=== PATIENT | male | born 1935 | race Caucasian/White ===

== ENCOUNTER 2017-10-10 06:21 | Outpatient (RCR) | payer SELFPAY | END 2017-11-09 23:59 | LOC: CR 06:21 | PROVIDERS: Family Provider Internal Medicine; PCP Internal Medicine; Visit Provider Internal Medicine Cardiovascular Disease | DX: Z00.00 Encounter for general adult medical examination without abnormal findings (principal) ==

== ENCOUNTER → 2017-11-22 07:12 | Outpatient (CLI) | payer MEDICARE, OTHER, SELFPAY ==
[2017-11-22 09:11] LABS: AST(SGOT) 14 U/L (15-37); Alanine Aminotransfer ALT/SGPT 16 U/L (16-61); Albumin, Serum 3.8 g/dL (3.2-5.0); Alkaline Phosphatase 94 U/L (45-117); Cholesterol 172 mg/dL (200); Globulin 3.6 g/dL (2.2-4.2); High Density Lipoprotein 39 mg/dL; Protein, Total 7.4 g/dL (6.4-8.2); Triglycerides 246 mg/dL; Very Low Density Lipoprotein 49 mg/dL (5-40)
== END ==
PROVIDERS: Physician Assistant Medical; Family Provider Internal Medicine; PCP Internal Medicine
DX: E78.5 Hyperlipidemia, unspecified (principal); Z79.899 Other long term (current) drug therapy
CPT/HCPCS: 36415; 80061; 80076

== ENCOUNTER 2017-12-05 06:00 | Outpatient (RCR) | payer SELFPAY | END 2017-12-09 23:59 | LOC: CR 06:00 | PROVIDERS: Family Provider Internal Medicine; PCP Internal Medicine; Visit Provider Internal Medicine Cardiovascular Disease | DX: Z00.00 Encounter for general adult medical examination without abnormal findings (principal) ==

== ENCOUNTER 2018-01-09 06:00 | Outpatient (RCR) | payer MEDICARE, OTHER, SELFPAY | END 2018-01-09 23:59 | LOC: CR 06:00 | PROVIDERS: Family Provider Internal Medicine; PCP Internal Medicine; Visit Provider Internal Medicine Cardiovascular Disease | DX: Z00.00 Encounter for general adult medical examination without abnormal findings (principal) ==

== ENCOUNTER 2018-02-06 06:00 | Outpatient (RCR) | payer MEDICARE, OTHER, SELFPAY | END 2018-02-08 23:59 | LOC: CR 06:00 | PROVIDERS: Family Provider Internal Medicine; PCP Internal Medicine; Visit Provider Internal Medicine Cardiovascular Disease | DX: Z00.00 Encounter for general adult medical examination without abnormal findings (principal) ==

== ENCOUNTER 2018-03-11 06:00 | Outpatient (RCR) | payer MEDICARE, OTHER, SELFPAY | END 2018-03-11 23:59 | LOC: CR 06:00 | PROVIDERS: Family Provider Internal Medicine; PCP Internal Medicine; Visit Provider Internal Medicine Cardiovascular Disease | DX: Z00.00 Encounter for general adult medical examination without abnormal findings (principal) ==

== ENCOUNTER 2018-04-10 06:00 | Outpatient (RCR) | payer SELFPAY | END 2018-04-11 23:59 | LOC: CR 06:00 | PROVIDERS: Family Provider Internal Medicine; PCP Internal Medicine; Visit Provider Internal Medicine Cardiovascular Disease | DX: Z00.00 Encounter for general adult medical examination without abnormal findings (principal) ==

== ENCOUNTER 2018-05-08 06:00 | Outpatient (RCR) | payer SELFPAY | END 2018-05-11 23:59 | LOC: CR 06:00 | PROVIDERS: Family Provider Internal Medicine; PCP Internal Medicine; Visit Provider Internal Medicine Cardiovascular Disease | DX: Z00.00 Encounter for general adult medical examination without abnormal findings (principal) ==

== ENCOUNTER → 2018-06-03 07:28 | Outpatient (CLI) | payer MEDICARE, OTHER, SELFPAY ==
[2018-06-03 08:34] LABS: AST(SGOT) 15 U/L (15-37); Alanine Aminotransfer ALT/SGPT 19 U/L (16-61); Albumin, Serum 3.6 g/dL (3.2-5.0); Alkaline Phosphatase 109 U/L (45-117); Bilirubin, Direct 0.17 mg/dL (0.00-0.30); Cholesterol 163 mg/dL (200); Globulin 3.8 g/dL (2.2-4.2); High Density Lipoprotein 36 mg/dL; Protein, Total 7.4 g/dL (6.4-8.2); Triglycerides 248 mg/dL; Very Low Density Lipoprotein 50 mg/dL (5-40)
== END ==
PROVIDERS: Family Provider Internal Medicine; PCP Internal Medicine; Referring Provider Internal Medicine Cardiovascular Disease; Visit Provider Internal Medicine Cardiovascular Disease
DX: E78.5 Hyperlipidemia, unspecified (principal); Z79.899 Other long term (current) drug therapy
CPT/HCPCS: 36415; 80061; 80076

== ENCOUNTER 2018-06-10 06:00 | Outpatient (RCR) | payer SELFPAY | END 2018-06-11 23:59 | LOC: CR 06:00 | PROVIDERS: Family Provider Internal Medicine; PCP Internal Medicine; Visit Provider Internal Medicine Cardiovascular Disease | DX: Z00.00 Encounter for general adult medical examination without abnormal findings (principal) ==

== ENCOUNTER → 2018-07-01 14:46 | Outpatient (CLI) | payer MEDICARE, OTHER, SELFPAY ==
[2018-07-01 13:18] VITALS: BMI 25.4
--- NOTE | 2018-07-01 14:50 | RAD_ITS ---
STUDY: X-RAY CHEST REASON FOR EXAM: Male, 82 years old. Having pacemaker battery changed soon TECHNIQUE: PA and lateral views of the chest. COMPARISON: 01/29/2011 FINDINGS: Two lead cardiac conduction device is seen via the left subclavian vein with lead tips projecting over the right atrium and right ventricle, respectively. Reticular opacity in the left lung base is more conspicuous since the prior study on frontal and lateral views. There is no demonstrated pleural abnormality. Normal size heart. Sternal wires and mediastinal surgical clips compatible with prior CABG. Normal mediastinum and yfn. Normal visualized pulmonary arteries. Normal visualized aortic arch and descending thoracic aorta. There is demineralization of the osseous structures. Normal visualized ribs, clavicles, and shoulders. There is no demonstrated abnormality of the visualized soft tissue structures of the upper abdomen. RAD/Chest PA and Lateral IMPRESSION: 1. Early infiltrate or localized parenchymal fibrosis in the left lower lobe. Electronically Signed: Angel Zaragoza MD at 20:55 EST , Service support ,
== END ==
PROVIDERS: Family Provider Internal Medicine; PCP Internal Medicine; Referring Provider Internal Medicine Cardiovascular Disease; Visit Provider Internal Medicine Cardiovascular Disease
DX: I49.5 Sick sinus syndrome (principal); Z95.0 Presence of cardiac pacemaker; Z95.820 Peripheral vascular angioplasty status with implants and grafts
CPT/HCPCS: 36415; 71046; 80048; 81001; 85027; 85610

== ENCOUNTER → 2018-07-01 15:09 | Outpatient (CLI) | payer MEDICARE, OTHER, SELFPAY ==
[2018-07-01 13:18] VITALS: BMI 25.4
[2018-07-01 15:25] LABS: Bacteria 0 SEEN /hpf (None Seen); Mucous, Urine 0 SEEN /hpf (<or=2+); Red Blood Cells-Urine 0 SEEN /hpf (0-5)
[2018-07-01 16:34] LABS: Color, Urine Yellow (Yellow); Glucose, Dipstick Normal (Normal); Ketone-Dipstick Negative (Negative); Leukocyte Esterase-Dipstick Negative /ul (Negative); Nitrite-Dipstick Negative (Negative); Occult Blood-Urine Negative /ul (Negative); Protein-Dipstick Negative (Negative); Specific Gravity, Urine 1.015 (1.002-1.030); Urine Bilirubin Dipstick Negative (Negative); Urine Clarity Clear (Clear); Urine Urobilinogen Normal (Normal)
[2018-07-01 16:42] LABS: Hyaline Cast 0-5 SEEN /lpf (0-5)
[2018-07-01 16:43] LABS: Squamous Epithelial Cells - UA 0-5 SEEN /hpf (0-5)
[2018-07-01 16:46] LABS: White Blood Cells 0-5 SEEN /hpf (0-5)
[2018-07-01 17:02] LABS: Hematocrit 39.5 % (40-54); Hemoglobin 12.9 g/dl (13.0-16.5); Mean Corp Hgb Conc 32.7 g/gl (32-36); Mean Corpuscular Hgb 30.6 pg (27.0-32.0); Mean Corpuscular Volume 93.6 fL (80-94); Mean Platelet Vol. 10.7 fl (6.2-12.0); Platelet Count 143 K/mm3 (150-450); RBC Distribution Width CV 13.7 % (11.6-14.6); RBC Distribution Width SD 46.3 fl (35.1-43.9); Red Blood Count 4.22 M/mm3 (4.6-6.2); Scan Indicated on CBC? Y/N NO; White Blood Count 5.3 K/mm3 (4.4-11.0)
[2018-07-01 17:11] LABS: International Normalized Ratio 1.1; Prothrombin Time (Protime)PT. 13.9 SECONDS (11.7-14.9)
[2018-07-01 17:13] LABS: Anion Gap 5 (5-15); BUN 27 mg/dL (7-18); BUN/Creat Ratio 15.3 RATIO (10-20); Calcium,Total 8.7 mg/dL (8.5-10.1); Chloride 111 mmol/L (98-107); Creatinine, Serum 1.76 mg/dL (0.70-1.30); EST Glomerular Filtration Rate 39 mL/min (>60); Est Glom Filt Rate - Afr Amer 48 mL/min (>60); Glucose 82 mg/dL (74-106); Potassium 4.3 mmol/L (3.5-5.1); Sodium Level 142 mmol/L (136-145)
== END ==
PROVIDERS: Family Provider Internal Medicine; PCP Internal Medicine; Referring Provider Internal Medicine Cardiovascular Disease; Visit Provider Internal Medicine Cardiovascular Disease
DX: I49.5 Sick sinus syndrome (principal); Z95.820 Peripheral vascular angioplasty status with implants and grafts; Z95.0 Presence of cardiac pacemaker
CPT/HCPCS: 36415; 80048; 81001; 85027; 85610

== ENCOUNTER 2018-07-10 06:00 | Outpatient (RCR) | payer SELFPAY | END 2018-07-11 23:59 | LOC: CR 06:00 | PROVIDERS: Family Provider Internal Medicine; PCP Internal Medicine; Visit Provider Internal Medicine Cardiovascular Disease | DX: Z00.00 Encounter for general adult medical examination without abnormal findings (principal) ==

== ENCOUNTER 2018-07-21 10:59 | Day surgery (SDC) | payer MEDICARE, OTHER, SELFPAY ==
[2018-07-01 13:18] VITALS: BMI 25.4
[2018-07-18 10:45] VITALS: BMI 25.4
--- NOTE | 2018-07-21 13:00 | CL.IE_ITS ---
Patient: ZENY FAROOQ V Study Date: 07/21/2018 Performing: Edinson White MD : [id number] Age: 83 Gender: male PROCEDURES PERFORMED [id number] REMOVAL+REPLACEMENT PACER-DUAL LEAD INDICATIONS End-of-life replacement indicator Sinoatrial node dysfunction/Sick sinus syndrome PROCEDURE DETAILS The patient was brought to the Catheterization Lab in the postabsorptive nonsedated state. Infor med consent was obtained prior to the procedure. Local anesthetic was given subcutaneously to the le ft jugular region with Lidocaine 2%. PPM generator was removed. Device pocket was irrigated with anti biotic. PPM generator was attached to the lead(s) and inserted into the pocket. Subcutaneous closure was completed with 3-0 Vicryl. Skin closure was completed with 4-0 Vicryl. The patient tolerated the procedure well. Estimated Blood Loss: 15 ml's IMPLANTED / EX-PLANTED DEVICES IMPLANTED DEVICE(S): PPM Generator - Human Resources Specialist: [employer], Model # Assurity MR [id number] , Serial # [id number] DEVICE PARAMETERS ATRIAL LEAD PARAMETERS: P wave- 0.6 (mV) threshold- 0.5 (V) impedence- 299 (OHMS) VENTRICULAR LEAD PARAMETERS: R wave- >12 (mV) threshold-0.5 (V) impedence- 371 (OHMS) DEVICE PARAMETERS: Mode- DDDR Lower rate- 60 Upper rate- 130 CONCLUSIONS / RECOMMENDATIONS PROCEDURE MEDICATIONS Versed 1 mg IV Oxygen: 2 L/min via nasal cannula Antibiotic given in appropriate timeframe. Ancef 2 Gm IV @ 07/21/2018 12:07:15 Signed By Edinson White MD On 07/21/2018 13:00:17 Edinson White MD
== END 2018-07-21 14:17 | disposition home or self-care (01) ==
PROVIDERS: Family Provider Internal Medicine; PCP Internal Medicine; Referring Provider Internal Medicine Cardiovascular Disease; Visit Provider Internal Medicine Cardiovascular Disease
DX: I49.5 Sick sinus syndrome (principal); Z45.010 Encounter for checking and testing of cardiac pacemaker pulse generator [battery]; Z00.6 Encounter for examination for normal comparison and control in clinical research program; I25.810 Atherosclerosis of coronary artery bypass graft(s) without angina pectoris; I10 Essential (primary) hypertension; E78.5 Hyperlipidemia, unspecified; Z79.82 Long term (current) use of aspirin; Z79.899 Other long term (current) drug therapy; I25.2 Old myocardial infarction; Z87.891 Personal history of nicotine dependence; Z96.643 Presence of artificial hip joint, bilateral; Z95.1 Presence of aortocoronary bypass graft
CPT/HCPCS: 33228; 99152; 99153; J7040; J7050

== ENCOUNTER 2018-07-31 06:00 | Outpatient (RCR) | payer SELFPAY ==
[2018-07-01 13:18] VITALS: BMI 25.4
== END 2018-08-11 23:59 ==
LOC: CR 06:00
PROVIDERS: Family Provider Internal Medicine; PCP Internal Medicine; Referring Provider Internal Medicine Cardiovascular Disease; Visit Provider Internal Medicine Cardiovascular Disease
DX: Z00.00 Encounter for general adult medical examination without abnormal findings (principal)

== ENCOUNTER 2018-11-11 06:35 | Outpatient (RCR) | payer SELFPAY ==
[2018-07-18 10:45] VITALS: BMI 25.4
== END 2018-12-09 23:59 ==
LOC: CR 06:35
PROVIDERS: Family Provider Internal Medicine; PCP Internal Medicine; Referring Provider Internal Medicine Cardiovascular Disease; Visit Provider Internal Medicine Cardiovascular Disease
DX: Z00.00 Encounter for general adult medical examination without abnormal findings (principal)

== ENCOUNTER → 2018-12-02 07:09 | Outpatient (CLI) | payer MEDICARE, OTHER, SELFPAY ==
[2018-07-18 10:45] VITALS: BMI 25.4
[2018-12-02 08:28] LABS: AST(SGOT) 15 U/L (15-37); Alanine Aminotransfer ALT/SGPT 17 U/L (16-61); Albumin, Serum 3.5 g/dL (3.2-5.0); Alkaline Phosphatase 98 U/L (45-117); Bilirubin, Direct 0.16 mg/dL (0.00-0.30); Cholesterol 168 mg/dL (200); Globulin 3.5 g/dL (2.2-4.2); High Density Lipoprotein 41 mg/dL; Triglycerides 192 mg/dL; Very Low Density Lipoprotein 38 mg/dL (5-40)
== END ==
PROVIDERS: Family Provider Internal Medicine; PCP Internal Medicine; Referring Provider Physician Assistant Medical; Visit Provider Physician Assistant Medical
DX: E78.5 Hyperlipidemia, unspecified (principal)
CPT/HCPCS: 36415; 80061; 80076

== ENCOUNTER 2018-12-11 08:33 | Outpatient (RCR) | payer SELFPAY ==
[2018-07-18 10:45] VITALS: BMI 25.4
== END 2019-01-09 23:59 ==
LOC: CR 08:33
PROVIDERS: Family Provider Internal Medicine; PCP Internal Medicine; Referring Provider Internal Medicine Cardiovascular Disease; Visit Provider Internal Medicine Cardiovascular Disease
DX: Z00.00 Encounter for general adult medical examination without abnormal findings (principal)

== ENCOUNTER → 2018-12-18 16:51 | Outpatient (CLI) | payer MEDICARE, OTHER, SELFPAY ==
[2018-12-18 15:55] VITALS: BMI 25.4
[2018-12-18 18:13] LABS: Anion Gap 5 (5-15); BUN 22 mg/dL (7-18); BUN/Creat Ratio 13.4 RATIO (10-20); Calcium,Total 8.6 mg/dL (8.5-10.1); Chloride 115 mmol/L (98-107); Creatinine, Serum 1.64 mg/dL (0.70-1.30); EST Glomerular Filtration Rate 43 mL/min (>60); Est Glom Filt Rate - Afr Amer 52 mL/min (>60); Glucose 81 mg/dL (74-106); Magnesium 1.9 mg/dL (1.6-2.6); Potassium 4.2 mmol/L (3.5-5.1); Sodium Level 146 mmol/L (136-145); Thyroid Stim Hormone (TSH) 1.12 uIU/mL (0.358-3.74)
== END ==
PROVIDERS: Family Provider Internal Medicine; PCP Internal Medicine; Referring Provider Internal Medicine Cardiovascular Disease; Visit Provider Internal Medicine Cardiovascular Disease
DX: I25.10 Atherosclerotic heart disease of native coronary artery without angina pectoris (principal); I47.1 Supraventricular tachycardia
CPT/HCPCS: 36415; 80048; 83735; 84443

== ENCOUNTER 2019-01-13 06:38 | Outpatient (RCR) | payer SELFPAY ==
[2018-12-18 15:55] VITALS: BMI 25.4
== END 2019-02-08 23:59 ==
LOC: CR 06:38
PROVIDERS: Family Provider Internal Medicine; PCP Internal Medicine; Referring Provider Internal Medicine Cardiovascular Disease; Visit Provider Internal Medicine Cardiovascular Disease
DX: Z00.00 Encounter for general adult medical examination without abnormal findings (principal)

== ENCOUNTER 2019-02-10 06:20 | Outpatient (RCR) | payer SELFPAY ==
[2018-12-18 15:55] VITALS: BMI 25.4
== END 2019-03-11 23:59 ==
LOC: CR 06:20
PROVIDERS: Family Provider Internal Medicine; PCP Internal Medicine; Referring Provider Internal Medicine Cardiovascular Disease; Visit Provider Internal Medicine Cardiovascular Disease
DX: Z00.00 Encounter for general adult medical examination without abnormal findings (principal)

== ENCOUNTER 2019-05-12 06:42 | Outpatient (RCR) | payer SELFPAY ==
[2018-12-18 15:55] VITALS: BMI 25.4
[2019-04-07 14:16] VITALS: BMI 24.3
== END 2019-06-11 23:59 ==
LOC: CR 06:42
PROVIDERS: Family Provider Internal Medicine; PCP Internal Medicine; Referring Provider Internal Medicine Cardiovascular Disease; Visit Provider Internal Medicine Cardiovascular Disease
DX: Z00.00 Encounter for general adult medical examination without abnormal findings (principal)

== ENCOUNTER → 2019-06-15 08:24 | Outpatient (CLI) | payer MEDICARE, OTHER, SELFPAY ==
[2019-04-07 14:16] VITALS: BMI 24.3
[2019-06-15 09:36] LABS: BUN 29 mg/dL (7-18); Creatinine, Serum 1.96 mg/dL (0.70-1.30); EST Glomerular Filtration Rate 35 mL/min (>60); Est Glom Filt Rate - Afr Amer 42 mL/min (>60)
== END ==
PROVIDERS: Family Provider Internal Medicine; PCP Internal Medicine; Referring Provider Otolaryngology; Visit Provider Otolaryngology
DX: H93.11 Tinnitus, right ear (principal)
CPT/HCPCS: 36415; 82565; 84520

== ENCOUNTER 2020-11-12 11:21 | Inpatient (IN) | payer MEDICARE, OTHER, SELFPAY ==
[2020-07-21 15:45] VITALS: BMI 26.2
[2020-11-12] VITALS (19 sets, daily range): BP systolic 102–168; BP diastolic 44–74; PULSE 60–65; RESP 17–23; TEMP 36.4–37.1; O2SAT 87–95; BMI 25.1; BMI 26.4
--- NOTE | 2020-11-12 11:42 | EKG12_ITS ---
Test Reason : COUGH Blood Pressure : / mmHG Vent. Rate : 060 BPM Atrial Rate : 060 BPM P-R Int : 222 ms QRS Dur : 094 ms QT Int : 494 ms P-R-T Axes : -08 064 268 degrees QTc Int : 494 ms Atrial-paced rhythm with prolonged AV conduction Cannot rule out Inferior infarct , age undetermined ST & T wave abnormality, consider lateral ischemia Abnormal ECG Confirmed by ATIF LANG, JANE ([id number]), map editor JIM ZAMBRANO ([id number]) on 11/16/2020 7:45:49 AM Referred By: CATHY Confirmed By:JANE SRIVASTAVA MD
--- NOTE | 2020-11-12 11:42 | RAD_ITS ---
EXAM: XR CHEST, 1 VIEW CLINICAL INDICATION: Cough. TECHNIQUE: Frontal view of the chest. This report was created using [employer] report generation technology. COMPARISON: 07/01/2018. FINDINGS: LUNGS AND PLEURAL SPACES: New ill-defined interstitial infiltrates in the bottom half of right lung. No pneumothorax. No effusion. HEART: Unremarkable. Cardiac silhouette not enlarged. MEDIASTINUM: Central airways and mediastinal contour are unremarkable. BONES/JOINTS: Unremarkable. SOFT TISSUES: Unremarkable. TUBES, LINES AND DEVICES: Dual-chamber pacing lead tips remain in the right atrium and right ventricle. RAD/Chest 1 View (Portable) IMPRESSION: 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 Electronically Signed: Adrian Sierra MD at 12:49 EDT , Service support ,
--- NOTE | 2020-11-12 11:45 | ED.DCSUM_ITS ---
History of Present Illness Chief Complaint: Cough Informant: Patient Narrative: Patient is an 85-year-old male with a past medical history of CAD with stent placed who presents to the emergency department for cough, fatigue and subjective fevers. Symptoms started this past Saturday. He feels like he is not able to focus as well as normal. He has been taking ibuprofen for his typical arthritis pains. He denies any known sick contacts. No known coronavirus exposures. His cough is occasionally productive of a sputum. He has already received both doses of his coronavirus vaccine. He denies any significant headache or neck stiffness. No rashes. No urinary symptoms. Denies nausea/vomiting or diarrhea. He denies any chest pain or abdominal pain. He has a former smoking history. Past Medical History - Allergies and Home Meds Allergies/Adverse Reactions: Allergies No Known Allergies Allergy (Verified 11/12/20 11:22) Prior records reviewed: Yes Surgical History: noncontributory Smoking Status: Former smoker - Family History Maternal Family History: Family History (Last Reviewed 07/21/20 @ 16:[address] Edinson White MD) Father Cancer Mother Alzheimers disease Family History: Reports: Dementia Paternal Family History: Family History (Last Reviewed 07/21/20 @ 16:[address] Edinson White MD) Father Cancer Mother Alzheimers disease Family History: Reports: Cancer Review of Systems All systems negative except as indicated General: Reports: Fever, Malaise. Denies: Chills, Sweats Eyes: Denies: Visual changes - bilaterally, Diplopia ENT: Denies: Rhinorrhea, Sore throat Cardiovascular: Denies: Chest pain, Palpitations Respiratory: Reports: Cough, Dyspnea on exertion Gastrointestinal: Denies: Abdominal pain, Nausea, Vomiting, Diarrhea Genitourinary: Denies: Dysuria, Hematuria, Frequency Musculoskeletal: Denies: Back pain, Extremity Pain Skin: Denies: Rash, Wounds Neurological: Denies: Headache, Weakness, Numbness Physical Exam Vital Signs/Narrative: Vital Signs Temp Pulse Resp BP Pulse Ox 11/12/20 11:23 98.7 F 61 17 126/51 H 92 Inital Vital Signs reviewed: Yes General: Well nourished, Well developed, No Acute Distress Head: Normocephalic, Atraumatic Eyes: Perrl, EOMI ENT: Moist mucous membranes, No rhinorrhea Neck: Supple, Nontender Cardiovascular: Regular rate, Regular rhythm, No murmurs Respiratory: No distress, CTA bilaterally, Chest nontender Abdomen: Soft, Nontender, Nondistended, Normal bowel sounds Back: Nontender, Normal Inspection Extremities: Nontender, No edema. Negative for: Calf Tenderness Skin: Normal color, No rash Neurological: Alert, Oriented x3, Cranial nerves II-XII grossly intact, Normal Strength, Normal Sensation Psychological: Normal affect, Normal Mood Diagnostic/Tx/Re-eval Chest X-Ray - ED: - - Single view portable x-ray interpreted by myself. There are patchy infiltrates in the right lower lobe and middle lobe. No left-sided involvement. Normal cardiac silhouette. Normal mediastinum. No large effusion appreciated. Sternotomy wires present. Pacer present. - EKG Initial EKG Interpretation: - - Rate of 60 bpm and an atrial paced rhythm. Has a AK interval of 222 with this. Otherwise normal intervals. Normal axis. No significant ST elevations or depressions. No T wave abnormalities. - Medical Decision Making Patient presents to the emergency department for cough, subjective fevers and weakness. Upon arrival to the emergency department he is satting 92% on room air with no increased work of breathing. He is afebrile at this time. Will check basic lab work including blood cultures and lactic acid. Chest x-ray and coronavirus test being obtained as well. Patient's Covid antigen came back negative. Does not have a high white blood cell count. His lactic acid was minimally elevated and he was started on IV fluids. He does not technically meet SIRS criteria so we will hold off on a complete 30 cc/kg fluid bolus. He is nontoxic-appearing. Unfortunately patient did drop his oxygen saturation to 87% on room air and was started on supplemental oxygen by nasal cannula. He is given a dose of Rocephin and azithromycin here in the emergency department. Given the hypoxia, worsening renal function will bring him into the hospital for further evaluation and management. Because of his elevated lactic acid he will require ICU stay initially. Patient understands and is agreeable with this plan. He otherwise has been stable throughout ED stay. ED Disposition - Plan for ED Patient: Disposition: Acute Care [facility] Diagnosis: CAP (community acquired pneumonia), Hypoxia, [id number] kidney injury, Elevated lactic acid level
[2020-11-12 12:36] LABS: Absolute Lymphocyte Count 0.75 X10^3/uL (0.83-4.51); Absolute Neutrophil Count 6.5 X10^3/uL (2.0-7.7); Basophil# 0.03 X10^3/uL; Basophil% 0.4 % (0-1); Eosinophil# 0.11 X10^3/uL; Eosinophils% 1.4 % (0-5); Hematocrit 32.7 % (40-54); Hemoglobin 10.6 g/dL (13.0-16.5); Lymphocyte # 0.75 X10^3/ul (4.0); Lymphocyte % 9.3 % (19-41); Mean Corp Hgb Conc 32.4 g/dL (32-36); Mean Corpuscular Hgb 30.8 pg (27.0-32.0); Mean Corpuscular Volume 95.1 fL (80-94); Mean Platelet Vol. 11.1 fl (6.2-12.0); Monocyte# 0.69 X10^3/uL; Monocyte% 8.5 % (0-10); NRBC Flagged by Analyzer 0 % (0-5); Neutrophil # 6.46 X10^3/uL (2.7-7.7); Neutrophil % 79.8 % (47-70); Platelet Count 216 K/mm3 (150-450); RBC Distribution Width CV 13.6 % (11.6-14.6); RBC Distribution Width SD 47.4 fl (35.1-43.9); Red Blood Count 3.44 M/mm3 (4.6-6.2); White Blood Count 8.1 K/mm3 (4.4-11.0)
[2020-11-12 12:37] LABS: ALB/GLOB Ratio 0.6 RATIO (0.9-2.4); AST(SGOT) 20 U/L (15-37); Alanine Aminotransfer ALT/SGPT 28 U/L (16-61); Albumin, Serum 2.7 g/dL (3.2-5.0); Alkaline Phosphatase 149 U/L (45-117); Anion Gap 10 (5-15); BUN 44 mg/dL (7-18); BUN/Creat Ratio 17.8 RATIO (10-20); Calcium,Total 8.4 mg/dL (8.5-10.1); Chloride 109 mmol/L (98-107); Creatinine, Serum 2.47 mg/dL (0.70-1.30); EST Glomerular Filtration Rate 27 mL/min (>60); Est Glom Filt Rate - Afr Amer 32 mL/min (>60); Estimated Creatinine Clearance 21.47 ml/min; Globulin 4.4 g/dL (2.2-4.2); Glucose 115 mg/dL (74-106); Potassium 3.3 mmol/L (3.5-5.1); Protein, Total 7.1 g/dL (6.4-8.2); Sodium Level 139 mmol/L (136-145)
[2020-11-12 12:54] LABS: Lactic Acid 2.3 mmol/L (0.4-1.9)
[2020-11-12] MEDS: 0.9% Normal Saline 1,000 ML 999 ML IV ×2 (13:00→13:55)
--- NOTE | 2020-11-12 13:37 | ED.RN ---
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
--- NOTE | 2020-11-12 13:38 | HP.PCM_ITS ---
Problem List (1) CAP (community acquired pneumonia) Status: Acute Qualifiers: Laterality: right (2) Severe sepsis Status: Acute (3) Hypoxia Status: Acute (4) Atherosclerosis of coronary artery of jena heart without angina pectoris Status: Resolved Comment: CABG x 3 PAREDES-LAD, SVG-LCx. SVG-RCA 12/15/1999 (5) Presence of permanent cardiac pacemaker Status: Chronic Comment: 01/11/2011, generator change 07/21/18 (6) Sick sinus syndrome Status: Chronic (7) Essential (primary) hypertension Status: Chronic (8) HLD (hyperlipidemia) Status: Chronic Qualifiers: Hyperlipidemia type: pure hypercholesterolemia Qualified Code(s): E78.00 - Pure hypercholesterolemia, unspecified; E78.0 - Pure hypercholesterolemia History of Present Illness Date of Admission: 11/12/20 Chief Complaint: Fever, cough, generalised weakness - 6 days The patient is a 85 year old M with past medical history of hypertension, CAD status post CABG, status post pacemaker who comes in with complaints of fever, cough, generalized weakness ongoing for about 6 days. Patient was seen in urgent care today, his oxygen saturation was low and he was sent to the emergency room. He denied any sick contact. He lives with his . Patient has completed his vaccination in the middle of October. His cough is productive of brownish sputum. Denied any upper respiratory symptoms. Vitals showed temp 98.7F, HR 61, BP 126/51, RR 17, Spo2 92% on room. WBC 8.1, Hb 10.6, Plt 216. Na 139, K 3.3, Cl 109, Co2 20, BUN 44, Cr 2.47, Lactic acid 2.3. Chest x-ray showed interstitial pneumonitis in the bottom half of the right lung. Rapid COVID-19 antigen test is negative. Past Medical History Past Medical History (Chronic Problems): Chronic Problems (Last Reviewed 07/21/20 @ 16:[address] Edinson White MD) Presence of permanent cardiac pacemaker (Chronic 07/21/18) 01/11/2011, generator change 07/21/18 Sick sinus syndrome (Chronic) NSVT (nonsustained ventricular tachycardia) (Chronic) Secondary pulmonary arterial hypertension (Chronic) Essential (primary) hypertension (Chronic) HLD (hyperlipidemia) (Chronic) Medical History: Medical History (Last Reviewed 07/21/20 @ 16:[address] Edinson White MD) Atherosclerosis of coronary artery of jena heart without angina pectoris (Resolved) I25.10 CABG x 3 PAREDES-LAD, SVG-LCx. SVG-RCA 12/15/1999 Sick sinus syndrome (Chronic) I49.5 NSVT (nonsustained ventricular tachycardia) (Chronic) I47.2 Secondary pulmonary arterial hypertension (Chronic) I27.21 Essential (primary) hypertension (Chronic) I10 HLD (hyperlipidemia) (Chronic) E78.5 CKD (chronic kidney disease) N18.9 Hepatitis C B19.20 Old myocardial infarction I25.2 Sick sinus syndrome I49.5 AV sequential pacer Palpitations (Inactive) R00.2 Allergies No Known Allergies Allergy (Verified 11/12/20 11:22) Home Medications: Ambulatory Orders Medication Instructions Recorded aspirin 81 mg tablet,delayed 81 mg PO DAILY@0800 #90 tab 12/02/18 release amiodarone 200 mg tablet 200 mg PO QHS #90 tab 02/04/20 amlodipine 5 mg tablet 5 mg PO QDAY #90 tab 02/04/20 isosorbide mononitrate 20 mg tablet 20 mg PO BID #180 tab 02/04/20 losartan 100 mg tablet 100 mg PO DAILY #90 tab 02/04/20 metoprolol tartrate 50 mg tablet 50 mg PO BID #180 tab 02/04/20 pravastatin 20 mg tablet 20 mg PO QHS #90 tab 02/04/20 ibuprofen 200 mg tablet 400 mg PO BID tab 07/21/20 Surgical History: Surgical History (Last Reviewed 07/21/20 @ 16:[address] Edinson White MD) H/O coronary artery bypass surgery (Resolved) Onset Date: 12/15/99 Z95.1 CABG x 3 PAREDES-LAD, SVG-LCx. SVG-RCA 12/15/1999 Presence of permanent cardiac pacemaker (Chronic) Onset Date: 07/21/18 Z95.0 01/11/2011, generator change 07/21/18 History of bilateral hip replacements Z96.643 Left hip: 1994; Right hip: History of left heart catheterization (LHC) Onset Date: 05/04/08 Z98.890 LHC: 12/1999; 04/2008. Peripheral vascular angioplasty status with implants and grafts Onset Date: 04/09/03 Z95.820 eft external and left common Iliac angioplasty and stenting Surgical History: coronary bypass surgery, pacemaker implantation, total hip arthroplasty, - - s/p iliac stents Psychiatric History: No pertinent psych hx Lives: Spouse/ Significant Other Smoking Status: Former smoker Tobacco Use: Non-smoker Alcohol: None Drugs: None - *Family History Maternal Family History: Family History (Last Reviewed 07/21/20 @ 16:[address] Edinson White MD) Father Cancer Mother Alzheimers disease History Items: Dementia Paternal Family History: Family History (Last Reviewed 07/21/20 @ 16:[address] Edinson White MD) Father Cancer Mother Alzheimers disease History Items: Cancer Review of Systems Constitutional: Reports: Anorexia, Fever, Malaise, Weakness, Fatigue. Denies: Chills, Night Sweats, Weight Change Eyes: Denies: Blurred vision, Cataracts, Conjunctivae Inflammation, Pain, Redness, Vision Change HEENT: Denies: Difficulty Hearing, Difficulty Swallowing, Head Aches, Hearing Changes, Sinus Congestion, Sinus Drainage Cardiovascular: Denies: Chest Pain, Claudication, Orthopnea, Palpitations Respiratory: Reports: Cough, Shortness of Breath, Shortness of breath at rest, Shortness of breath upon exertion, Sputum production Gastrointestinal: Denies: Abdominal Pain, Hematemesis, Hematochezia, Nausea, Vomiting Genitourinary: Denies: Dysuria, Frequency, Incontinence, Nocturia Musculoskeletal: Denies: Joint Pain, Joint stiffness, Joint swelling, Joint Tenderness Skin: Denies: Rash, Wounds Neurological: Denies: Difficulty swallowing, Focal weakness, Numbness, Tingling Psychiatric: Denies: Anxiety, Depression, Homicidal Ideations, Suicidal Ideations Hematologic/ Lymphatic: Denies: Easy Bruising, Easy Bleeding VTE Information - Inpt Only VTE Present on Admission: No VTE Pharm Prophylaxis ordered?: Yes Patient Problems: Active and Suspected Problems (Last Reviewed 07/21/20 @ 16:[address] Edinson White MD) CAP (community acquired pneumonia) (Acute) Severe sepsis (Acute) Hypoxia (Acute) - Physical Exam Vitals/I&O's: Vital Signs Temp Pulse Resp BP Pulse Ox 98.3 F 60 21 H 103/49 L 92 11/12/20 12:27 11/12/20 12:27 11/12/20 12:27 11/12/20 12:27 11/12/20 12:27 Oxygen Flow Rate (L/min) 2 Oxygen Delivery Method Nasal Cannula Weight: 77.111 kg Body Mass Index (BMI) 25.1 General: Alert, Oriented x3, Cooperative, No apparent distress HEENT: Atraumatic, PERRLA, EOMI, Normocephalic Oral: Moist Mucosa Neck: Supple Lungs: Clear to auscultation, Normal air movement Cardiovascular: Regular rate, Regular Rhythm, Normal S1, Normal S2, No murmurs Abdomen: Bowel Sounds Present, Soft, Non Tender, Non-Distended, No Hepato- splenomegaly Extremities: No edema Skin: No rashes, No breakdown Musculoskeletal: No Tenderness to Palpation of Joints or Extremities Lymphatic: No Cervical, Supraclavicular, or Inguinal Adenopathy Neurological: Cranial nerves II-XII grossly intact, Neuro grossly intact Psych/Mental Status: Normal Affect, Appropriate Microbiology Past 72 Hours 11/12/20 11:50 Mucosa - Nose SARS-CoV-2 Antigen (Rapid) - Final Laboratory Results 11/12/20 11:45: WBC 8.1, RBC 3.44 L, Hgb 10.6 L, Hct 32.7 L, MCV 95.1 H, MCH 30.8, MCHC 32.4, RDW Std Deviation 47.4 H, RDW Coeff of Mike 13.6, Plt Count 216, MPV 11.1, Immature Gran % (Auto) 0.600, Neut % (Auto) 79.8 H, Lymph % (Auto) 9.3 L, [place] % (Auto) 8.5, Eos % (Auto) 1.4, Baso % (Auto) 0.4, Absolute Neuts (auto) 6.5, Absolute Lymphs (auto) 0.75 L, Nucleated RBC % 0 11/12/20 11:45: Sodium 139, Potassium 3.3 L, Chloride 109 H, Carbon Dioxide 20.0 L, Anion Gap 10, BUN 44 H, Creatinine 2.47 H, Estim Creat Clear Calc 21.47, Est GFR (MDRD) Af Amer 32 L, Est GFR (MDRD) Non-Af 27 L, BUN/Creatinine Ratio 17.8, Glucose 115 H, Calcium 8.4 L, Total Bilirubin 1.00, AST 20, ALT 28, Alkaline Phosphatase 149 H, Troponin I < 0.015, Total Protein 7.1, Albumin 2.7 L, Globu jordan 4.4 H, Albumin/Globulin Ratio 0.6 L 11/12/20 11:45: Lactic Acid 2.3 H* Current Medications Sodium Chloride () 1,000 mls @ 999 mls/hr IV .Q1H1M ONE Stop: 11/12/20 13:54 Last Admin: 11/12/20 13:00 Dose: 999 mls/hr Documented by: Azithromycin 500 mg/ Dextrose 255 mls @ 250 mls/hr IV X1 ONE Stop: 11/12/20 13:56 Sodium Chloride () 1,000 mls @ 999 mls/hr IV .Q1H1M ONE Stop: 11/12/20 14:37 Assessment/Plan All Active Problems (Last Reviewed 07/21/20 @ 16:[address] Edisnon White MD) CAP (community acquired pneumonia) (Acute) Severe sepsis (Acute) Hypoxia (Acute) Atherosclerosis of coronary artery of jena heart without angina pectoris (Resolved) H/O coronary artery bypass surgery (Resolved 12/15/99) 1. 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 Acute hypoxia secondary to community-acquired pneumonia Continue to encourage use of incentive spirometer 3. Hypokalemia, replaced, will also check magnesium level 4. KARUNA on CKD stage 3b, secondary to #1 ,appears to be improving Baseline Creatinine between 1.2-1.4; off losartan/hydrochlorothiazide On IV fluids, repeat blood work in a.m. 5. Hypertension, controlled, continue on home blood pressure medications except for losartan Continue to monitor vitals 6. CAD status post stent, status post CABG/status post pacemaker Continue on aspirin, isosorbide, metoprolol, pravastatin, amiodarone 7. DVT prophylaxis with heparin subcu 8. Prophylaxis with famotidine p.o. 9. Code Status: DNR CCA, no intubation I discussed and explained in details the various types of CODE STATUS-full code, DNR CCA, DNR CC. Patient chose to be DNR-CCA, no intubation. Time spent discussing CODE STATUS 18 minutes Inpatient E&M: 91440 Init Hosp L3 Procedures: 59499 Advncd Care Plan 30 Min
[2020-11-12] MEDS: Potassium Chloride Oral Tablet 20 MEQ 40 MEQ PO (15:53)
[2020-11-12] MEDS: 0.9% Normal Saline 1,000 ML 150 ML IV ×2 (15:54→21:54)
[2020-11-12 15:58] LABS: Magnesium 1.8 mg/dL (1.6-2.6)
[2020-11-12 16:06] LABS: Reflex Lactate? Y
[2020-11-12 19:48] LABS: Bacteria 0 SEEN /hpf (None Seen); Mucous, Urine 0 SEEN /hpf (<or=2+); Squamous Epithelial Cells - UA 0 SEEN /hpf (0-5)
[2020-11-12 20:26] LABS: Color, Urine Yellow (Yellow); Glucose, Dipstick Normal (Normal); Ketone-Dipstick 5 mg/dl (Negative); Leukocyte Esterase-Dipstick Negative /ul (Negative); Nitrite-Dipstick Negative (Negative); Occult Blood-Urine Negative /ul (Negative); Protein-Dipstick 30 mg/dl (Negative); Specific Gravity, Urine 1.015 (1.002-1.030); Urine Bilirubin Dipstick Negative (Negative); Urine Clarity Clear (Clear); Urine Urobilinogen 1 mg/dl (Normal)
[2020-11-12 21:11] LABS: Fine Granular Cast- Urine 0-5 SEEN /lpf (0-5)
[2020-11-12 21:13] LABS: Hyaline Cast 0-5 SEEN /lpf (0-5); White Blood Cells 0-5 SEEN /hpf (0-5)
[2020-11-12 21:14] LABS: Red Blood Cells-Urine 0-5 SEEN /hpf (0-5)
[2020-11-12] MEDS: Heparin Injection (Vial) 5,000 UNIT/ML VIAL 5000 UNIT SC (21:54)
[2020-11-13] VITALS (35 sets, daily range): BP systolic 124–166; BP diastolic 55–82; PULSE 60–78; RESP 12–25; TEMP 36.6–37.7; O2SAT 90–97
[2020-11-13] MEDS: 0.9% Normal Saline 1,000 ML 150 ML IV (04:29)
[2020-11-13 04:42] LABS: Absolute Neutrophil Count 4.2 X10^3/uL (2.0-7.7); Basophil# 0.02 X10^3/uL; Basophil% 0.3 % (0-1); Eosinophil# 0.12 X10^3/uL; Eosinophils% 2.1 % (0-5); Hematocrit 29.9 % (40-54); Hemoglobin 9.8 g/dL (13.0-16.5); Lymphocyte % 15.7 % (19-41); Mean Corp Hgb Conc 32.8 g/dL (32-36); Mean Corpuscular Hgb 31.6 pg (27.0-32.0); Mean Corpuscular Volume 96.5 fL (80-94); Mean Platelet Vol. 10.6 fl (6.2-12.0); Monocyte# 0.42 X10^3/uL; Monocyte% 7.3 % (0-10); NRBC Flagged by Analyzer 0 % (0-5); Neutrophil % 73.6 % (47-70); Platelet Count 168 K/mm3 (150-450); RBC Distribution Width CV 13.6 % (11.6-14.6); RBC Distribution Width SD 48.6 fl (35.1-43.9); White Blood Count 5.7 K/mm3 (4.4-11.0)
[2020-11-13 04:58] LABS: ALB/GLOB Ratio 0.6 RATIO (0.9-2.4); AST(SGOT) 21 U/L (15-37); Alanine Aminotransfer ALT/SGPT 24 U/L (16-61); Albumin, Serum 2.2 g/dL (3.2-5.0); Alkaline Phosphatase 132 U/L (45-117); Anion Gap 9 (5-15); BUN 34 mg/dL (7-18); BUN/Creat Ratio 18.4 RATIO (10-20); Calcium,Total 7.9 mg/dL (8.5-10.1); Chloride 113 mmol/L (98-107); Creatinine, Serum 1.85 mg/dL (0.70-1.30); EST Glomerular Filtration Rate 37 mL/min (>60); Est Glom Filt Rate - Afr Amer 45 mL/min (>60); Estimated Creatinine Clearance 28.66 ml/min; Globulin 3.8 g/dL (2.2-4.2); Glucose 102 mg/dL (74-106); Potassium 3.9 mmol/L (3.5-5.1); Sodium Level 142 mmol/L (136-145)
--- NOTE | 2020-11-13 06:36 | PCM.CON.CC ---
Problem List (1) CAP (community acquired pneumonia) Status: Acute Qualifiers: Laterality: right Lung location: lower lobe of lung Qualified Code(s): J18.9 - Pneumonia, unspecified organism (2) Severe sepsis Status: Acute (3) Hypoxia Status: Acute (4) Jbyzu-rg-ptpzbus kidney injury Status: Chronic Qualifiers: Chronic kidney disease stage: stage 3 (moderate) Chronic kidney disease stage 3 subtype: stage 3b (GFR 30-44) (5) Atherosclerosis of coronary artery of [place] heart without angina pectoris Status: Resolved Qualifiers: Coronary Disease-Associated Artery/Lesion type: bypass graft Qualified Code(s): I25.810 - Atherosclerosis of coronary artery bypass graft(s) without angina pectoris Comment: CABG x 3 PAREDES-LAD, SVG-LCx. SVG-RCA 12/15/1999 (6) H/O coronary artery bypass surgery Status: Resolved Comment: CABG x 3 PAREDES-LAD, SVG-LCx. SVG-RCA 12/15/1999 (7) Presence of permanent cardiac pacemaker Status: Chronic Comment: 01/11/2011, generator change 07/21/18 (8) Secondary pulmonary arterial hypertension Status: Chronic (9) Essential (primary) hypertension Status: Chronic (10) HLD (hyperlipidemia) Status: Chronic Qualifiers: Hyperlipidemia type: pure hypercholesterolemia Qualified Code(s): E78.00 - Pure hypercholesterolemia, unspecified; E78.0 - Pure hypercholesterolemia Reason for Consult Date of Consultation: 11/13/20 Reason for Consultation: Severe sepsis History of Present Illness: The patient is an 85 year old M, with past medical history listed below, who presented to [facility] on 11/12/2020 secondary to cough, fatigue and subjective fevers. Patient stated that this started approximately 5 days prior to presentation and he has noticed some difficulty in thinking straight. Patient does take ibuprofen secondary to baseline arthritic pains. Patient denied any sick contacts or Covid exposures. Patient states his cough is productive of sputum. Patient has recently completed his coronavirus vaccine series. Patient not reported any headache or neck stiffness. In the ER, patient was noted to be saturating 92% on room air with no increased work of breathing. Laboratory work-up did show a slightly elevated lactic acid and chest x-ray showed a right lower lobe pneumonia. Patient did not have a significant leukocytosis, but was started on IV fluids secondary to concerns for sepsis. Patient did not receive a full bolus given lack of SIRS criteria. Patient was initiated on Rocephin, azithromycin and admitted to the intensive care unit for further evaluation. Since being in the intensive care unit, patient's oxygenation status has worsened. Patient is now requiring a 50% Ventimask to maintain saturations. Nursing has reported some concerns for possible sleep apnea complicating overall condition. Patient denies feeling subjectively worse, but has had a cough that is productive. Patient has not provided a sample for culture at this time. Patient has not developed any nausea, vomiting or diarrhea. Patient is not reporting any headache at this time. Patient states he has very little recollection of presenting to the ER. Review of systems is difficult to obtain secondary to what appears to be a language barrier. However, patient speaks good [place], but has difficulty with specific words. Review of systems otherwise negative from a constitutional, HEENT, respiratory, cardiovascular, GI, genitourinary, musculoskeletal, skin, neurologic, psychiatric and hematologic system unless stated above. Past Medical History Past Medical History (Chronic Problems): Chronic Problems (Last Reviewed 07/21/20 @ 16:[address] Edinson White MD) Adovb-az-hhturzx kidney injury (Chronic) Presence of permanent cardiac pacemaker (Chronic 07/21/18) 01/11/2011, generator change 07/21/18 Sick sinus syndrome (Chronic) NSVT (nonsustained ventricular tachycardia) (Chronic) Secondary pulmonary arterial hypertension (Chronic) Essential (primary) hypertension (Chronic) HLD (hyperlipidemia) (Chronic) Medical History: Medical History (Last Reviewed 07/21/20 @ 16:[address] Edinson White MD) Atherosclerosis of coronary artery of [place] heart without angina pectoris (Resolved) I25.10 CABG x 3 PAREDES-LAD, SVG-LCx. 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 [Ecotrin] 81 mg PO DAILY@0800 11/12/20 Isosorbide Mononitrate [Monoket] 20 mg PO BID 11/12/20 Losartan Potassium 100 mg PO DAILY 11/12/20 Metoprolol Tartrate [Lopressor 50 mg PO BID 11/12/20 (beta juan josé)] Pravastatin Sodium 20 mg PO QHS 11/12/20 Surgical History: Surgical History (Last Reviewed 07/21/20 @ 16:[address] Edinson Wihte MD) H/O coronary artery bypass surgery (Resolved) Onset Date: 12/15/99 Z95.1 CABG x 3 PAREDES-LAD, SVG-LCx. SVG-RCA 12/15/1999 Presence of permanent cardiac pacemaker (Chronic) Onset Date: 07/21/18 Z95.0 01/11/2011, generator change 07/21/18 History of bilateral hip replacements Z96.643 Left hip: 1994; Right hip: History of left heart catheterization (LHC) Onset Date: 05/04/08 Z98.890 LHC: 12/1999; 04/2008. Peripheral vascular angioplasty status with implants and grafts Onset Date: 04/09/03 Z95.820 eft external and left common Iliac angioplasty and stenting Surgical History: coronary bypass surgery, pacemaker implantation, total hip arthroplasty, - - s/p iliac stents Psychiatric History: No pertinent psych hx Lives: Spouse/ Significant Other Smoking Status: Former smoker Tobacco Use: Non-smoker Alcohol: None Drugs: None - *Family History Maternal Family History: Family History (Last Reviewed 07/21/20 @ 16:[address] Edinson White MD) Father Cancer Mother Alzheimers disease History Items: Dementia Paternal Family History: Family History (Last Reviewed 07/21/20 @ 16:[address] Edinson White MD) Father Cancer Mother Alzheimers disease History Items: Cancer Review of Systems Unable to obtain accurate/complete ROS d/t: See HPI Patient Problems: Active and Suspected Problems (Last Reviewed 07/21/20 @ 16:[address] Edinson White MD) CAP (community acquired pneumonia) (Acute) Severe sepsis (Acute) Hypoxia (Acute) Elevated lactic acid level (Acute) Objective: All imaging was personally reviewed. Chest x-ray shows a right lower lobe infiltrate. Patient does have an echocardiogram from 2017 showing an EF of 55% with pacer wires and a normal systolic function. Patient did have an elevated pulmonary artery pressure of 48 mmHg at that time. - Physical Exam Vitals/I&O's: Vital Signs Temp Pulse Resp BP Pulse Ox 37.7 C H 60 22 H 136/65 H 93 11/13/20 04:00 11/13/20 05:00 11/13/20 05:00 11/13/20 05:00 11/13/20 05:00 Oxygen Flow Rate (L/min) 12 Oxygen Delivery Method Venturi Mask Weight: 83.4 kg Body Mass Index (BMI) 26.4 Intake and Output for Last 24 Hours 11/11/20 11/12/20 11/13/20 23:59 23:59 23:59 Intake Total 3429 / 3429 987.5 / 987.5 Output Total 520 / 520 Balance 2909 / 2909 987.5 / 987.5 General: Alert, Oriented x3, Cooperative, - - Mild conversational dyspnea HEENT: Atraumatic, PERRLA, EOMI, Normocephalic, - - No scleral icterus or injection noted Oral: Moist Mucosa, No Gingival or Mucosal Lesions/ Ulcerations Neck: Supple, No JVD, No Nodes, Trachea Midline Lungs: No rhonchi, No wheeze, Diminished, Rhonchi - Right base Cardiovascular: Regular rate, Regular Rhythm, Normal S1, Normal S2, No murmurs, No rub noted, No Gallop, - - Paced rhythm Abdomen: Bowel Sounds Present, Soft, Non Tender, Non-Distended Extremities: No clubbing, No cyanosis, No edema Skin: No rashes, No breakdown Musculoskeletal: No Tenderness to Palpation of Joints or Extremities Lymphatic: No Cervical, Supraclavicular, or Inguinal Adenopathy Neurological: Cranial nerves II-XII grossly intact, Neuro grossly intact, Motor Exam 5/5 strength throughout Psych/Mental Status: Normal Affect, Appropriate Microbiology Past 72 Hours 11/12/20 19:40 Urine, Random Legionella Antigen - Final 11/12/20 19:40 Urine, Random Streptococcus pneumoniae Antigen (M - Final 11/12/20 14:50 Mucosa - Nasopharyngeal Respiratory Panel (PCR) - Final 11/12/20 11:50 Mucosa - Nose SARS-CoV-2 Antigen (Rapid) - Final Laboratory Results 11/12/20 11:45: WBC 8.1, RBC 3.44 L, Hgb 10.6 L, Hct 32.7 L, MCV 95.1 H, MCH 30.8, MCHC 32.4, RDW Std Deviation 47.4 H, RDW Coeff of Mike 13.6, Plt Count 216, MPV 11.1, Immature Gran % (Auto) 0.600, Neut % (Auto) 79.8 H, Lymph % (Auto) 9.3 L, [place] % (Auto) 8.5, Eos % (Auto) 1.4, Baso % (Auto) 0.4, Absolute Neuts (auto) 6.5, Absolute Lymphs (auto) 0.75 L, Nucleated RBC % 0 11/12/20 11:45: Sodium 139, Potassium 3.3 L, Chloride 109 H, Carbon Dioxide 20.0 L, Anion Gap 10, BUN 44 H, Creatinine 2.47 H, Estim Creat Clear Calc 21.47, Est GFR (MDRD) Af Amer 32 L, Est GFR (MDRD) Non-Af 27 L, BUN/Creatinine Ratio 17.8, Glucose 115 H, Calcium 8.4 L, Total Bilirubin 1.00, AST 20, ALT 28, Alkaline Phosphatase 149 H, Troponin I < 0.015, Total Protein 7.1, Albumin 2.7 L, Globulin 4.4 H, Albumin/Globulin Ratio 0.6 L 11/12/20 11:45: Lactic Acid 2.3 H* 11/12/20 11:45: Magnesium 1.8 11/12/20 14:50: COVID-19 (JANINE) Not Detected 11/12/20 17:00: Lactic Acid 1.0 11/12/20 19:40: Urine Color Yellow, Urine Clarity Clear, Urine pH 5.0, Ur Specific [place] 1.015, Urine Protein 30 H, Urine Glucose (UA) Normal, Urine Ketones 5 H, Urine Occult Blood Negative, Urine Nitrite Negative, Urine Bilirubin Negative, Urine Urobilinogen 1 H, Ur Leukocyte Esterase Negative, Urine RBC 0-5 SEEN, Urine WBC 0-5 SEEN, Ur Squamous Epith Cells 0 SEEN, Urine Bacteria 0 SEEN, Hyaline Casts 0-5 SEEN, Fine Granular Casts 0-5 SEEN, Urine Mucus 0 SEEN 11/13/20 04:33: WBC 5.7, RBC 3.10 L, Hgb 9.8 L, Hct 29.9 L, MCV 96.5 H, MCH 31.6, MCHC 32.8, RDW Std Deviation 48.6 H, RDW Coeff of Mike 13.6, Plt Count 168, MPV 10.6, Immature Gran % (Auto) 1.000 H, Neut % (Auto) 73.6 H, Lymph % (Auto) 15.7 L, [place] % (Auto) 7.3, Eos % (Auto) 2.1, Baso % (Auto) 0.3, Absolute Neuts (auto) 4.2, Absolute Lymphs (auto) 0.90, Nucleated RBC % 0 11/13/20 04:33: Sodium 142, Potassium 3.9, Chloride 113 H, Carbon Dioxide 20.0 L, Anion Gap 9, BUN 34 H, Creatinine 1.85 H, Estim Creat Clear Calc 28.66, Est GFR (MDRD) Af Amer 45 L, Est GFR (MDRD) Non-Af 37 L, BUN/Creatinine Ratio 18.4, Glucose 102, Calcium 7.9 L, Total Bilirubin 0.50, AST 21, ALT 24, Alkaline Phosphatase 132 H, Total Protein 6.0 L, Albumin 2.2 L, Globulin 3.8, Albumin/Globulin Ratio 0.6 L Current Medications Acetaminophen (Acetaminophen 325 Mg Tablet) 650 mg PO Q6H PRN PRN PRN Reason: Pain Score 1-10/Temp > 100.7 F Famotidine (Famotidine 20 Mg Tablet) 20 mg PO DAILY [facility] Heparin Sodium (Porcine) (Heparin Injection (Vial) 5,000 Unit/Ml Vial) 5,000 unit SC Q12 [facility] Last Admin: 11/12/20 21:54 Dose: 5,000 unit Documented by: Sodium Chloride () 1,000 mls @ 150 mls/hr IV .[id number] [facility] Last Admin: 11/13/20 04:29 Dose: 150 mls/hr Documented by: Ceftriaxone Sodium (Rocephin) 1 gm in 50 mls @ 100 mls/hr IV Q24 LEOBARDO Azithromycin 500 mg/ Dextrose 255 mls @ 250 mls/hr IV Q24 LEOBARDO Sodium Chloride () 250 mls @ 15 mls/hr IV .[id number] PRN PRN Reason: Saline Flush Sodium Chloride () 250 mls @ 15 mls/hr IV .[id number] PRN PRN Reason: Additional IVPB Infusion Ondansetron HCl (Ondansetron 4 Mg/2 Ml Vial) 4 mg IV Q8H PRN PRN PRN Reason: NAUSEA/VOMITING Sodium Chloride (0.9% Saline Lock 10 Ml Syringe) 10 - 40 ml IV UD PRN PRN Reason: SALINE FLUSH Clinical Impression(s) from Imaging Studies Chest X-Ray 11/12/20 11:42 IMPRESSION: 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 Electronically Signed: Adrian Sierra MD at 12:49 EDT , Service support , Assessment/Plan Active and Suspected Problems (Last Reviewed 07/21/20 @ 16:[address] Edinson White MD) CAP (community acquired pneumonia) (Acute) Severe sepsis (Acute) Hypoxia (Acute) Elevated lactic acid level (Acute) RECOMMENDATIONS: 1. Continue empiric antibiotics pending culture data 2. Slowdown IV fluids 3. Aggressive pulmonary toileting 4. Hold DI inhibitor given acute kidney injury 5. Possibly transfer from the intensive care unit later today pending respiratory status IMPRESSIONS: 1. Acute hypoxic respiratory failure/severe sepsis secondary to right lower lobe pneumonia Patient appears to have a right lower lobe community-acquired pneumonia on chest x-ray. Initial lactate was elevated. Clinical suspicion for blossoming of infiltrate secondary to fluid resuscitation. Wean oxygen as tolerated. Aggressive pulmonary toileting. Empiric antibiotics for now. Patient does not have any wheezing on exam denies any obstructive lung disease, so would hold off on any steroids. As needed bronchodilators would not be unreasonable if patient develops wheezing. Patient may benefit to transition to Airvo to allow for p.o. medications if unable to wean from Ventimask following waking up. 2. Acute on chronic kidney disease stage IIIb Patient reportedly was volume depleted on presentation in the setting of hydrochlorothiazide and losartan. These have been held. Continue with aggressive supportive hemodynamics. Clinical suspicion for prerenal etiology. No indication for renal replacement therapy at this time. 3. Coronary artery disease status post stent and CABG/pacemaker status post sick sinus syndrome Okay to continue with baseline medications except for losartan given acute kidney injury. No indication to cycle troponins. Continue with telemetry. 4. Advanced age/hypertension/hypokalemia Complicates care, management, recovery and prognosis. Patient was verified to be a DNR Comfort Care arrest without intubation. Inpatient E&M: [id number] Init Hosp L3
--- NOTE | 2020-11-13 07:10 | RAD_ITS ---
STUDY: X-RAY CHEST REASON FOR EXAM: Male, 85 years old. Progressive SOB TECHNIQUE: Single AP portable view of the chest. COMPARISON: November 12, 2020 chest x-ray FINDINGS: There is a left-sided pacemaker leads overlying the region ventricle. Patchy groundglass opacity in the right upper lobe right lower lobe left lung base. There is blunting of the right costophrenic angle. Normal size heart. Normal mediastinum and yfn. Normal visualized pulmonary arteries. There is atherosclerotic calcification of the aortic arch with tortuosity. There are diffuse degenerative changes of the visualized thoracic spine. Normal visualized ribs, clavicles, and shoulders. There is no demonstrated abnormality of the visualized soft tissue structures of the upper abdomen. RAD/Chest 1 View (Portable) IMPRESSION: Acute focal infiltrate suspicious for pneumonia cannot exclude small bilateral effusions. Status post sternotomy. Pacemaker. Electronically Signed: Christy Chance MD at 8:06 EDT Tel , Service support ,
--- NOTE | 2020-11-13 07:13 | HP.PCM_ITS ---
Problem List (1) CAP (community acquired pneumonia) Status: Acute Qualifiers: Qualified Code(s): J18.9 - Pneumonia, unspecified organism (2) Severe sepsis Status: Acute (3) Hypoxia Status: Acute (4) Atherosclerosis of coronary artery of [place] heart without angina pectoris Status: Resolved Qualifiers: Qualified Code(s): I25.810 - Atherosclerosis of coronary artery bypass graft(s) without angina pectoris Comment: CABG x 3 PAREDES-LAD, SVG-LCx. SVG-RCA 12/15/1999 (5) Presence of permanent cardiac pacemaker Status: Chronic Comment: 01/11/2011, generator change 07/21/18 (6) Sick sinus syndrome Status: Chronic (7) Essential (primary) hypertension Status: Chronic (8) HLD (hyperlipidemia) Status: Chronic Qualifiers: Qualified Code(s): E78.00 - Pure hypercholesterolemia, unspecified History of Present Illness The patient is a 85 year old M [] Past Medical History Past Medical History (Chronic Problems): Chronic Problems (Last Reviewed 07/21/20 @ 16:[address] Edinson White MD) Mfpuu-mi-pfjjnqq kidney injury (Chronic) Presence of permanent cardiac pacemaker (Chronic 07/21/18) 01/11/2011, generator change 07/21/18 Sick sinus syndrome (Chronic) NSVT (nonsustained ventricular tachycardia) (Chronic) Secondary pulmonary arterial hypertension (Chronic) Essential (primary) hypertension (Chronic) HLD (hyperlipidemia) (Chronic) Medical History: Medical History (Last Reviewed 07/21/20 @ 16:[address] Edinson White MD) Atherosclerosis of coronary artery of [place] heart without angina pectoris (Resolved) I25.10 CABG x 3 PAREDES-LAD, SVG-LCx. 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 [Ecotrin] 81 mg PO DAILY@0800 11/12/20 Isosorbide Mononitrate [Monoket] 20 mg PO BID 11/12/20 Losartan Potassium 100 mg PO DAILY 11/12/20 Metoprolol Tartrate [Lopressor 50 mg PO BID 11/12/20 (beta juan josé)] Pravastatin Sodium 20 mg PO QHS 11/12/20 Surgical History: Surgical History (Last Reviewed 07/21/20 @ 16:[address] Edinson White MD) H/O coronary artery bypass surgery (Resolved) Onset Date: 12/15/99 Z95.1 CABG x 3 PAREDES-LAD, SVG-LCx. SVG-RCA 12/15/1999 Presence of permanent cardiac pacemaker (Chronic) Onset Date: 07/21/18 Z95.0 01/11/2011, generator change 07/21/18 History of bilateral hip replacements Z96.643 Left hip: 1994; Right hip: History of left heart catheterization (LHC) Onset Date: 05/04/08 Z98.890 LHC: 12/1999; 04/2008. Peripheral vascular angioplasty status with implants and grafts Onset Date: 04/09/03 Z95.820 eft external and left common Iliac angioplasty and stenting Surgical History: coronary bypass surgery, pacemaker implantation, total hip arthroplasty, - - s/p iliac stents Psychiatric History: No pertinent psych hx Lives: Spouse/ Significant Other Smoking Status: Former smoker Tobacco Use: Non-smoker Alcohol: None Drugs: None - *Family History Maternal Family History: Family History (Last Reviewed 07/21/20 @ 16:[address] Edinson White MD) Father Cancer Mother Alzheimers disease History Items: Dementia Paternal Family History: Family History (Last Reviewed 07/21/20 @ 16:[address] Edinson White MD) Father Cancer Mother Alzheimers disease History Items: Cancer Patient Problems: Active and Suspected Problems (Last Reviewed 07/21/20 @ 16:[address] Edinson White MD) CAP (community acquired pneumonia) (Acute) Severe sepsis (Acute) Hypoxia (Acute) Elevated lactic acid level (Acute) - Physical Exam Vitals/I&O's: Vital Signs Temp Pulse Resp BP Pulse Ox 99.9 F H 60 22 H 136/65 H 94 11/13/20 04:00 11/13/20 05:00 11/13/20 05:00 11/13/20 05:00 11/13/20 06:36 Oxygen Flow Rate (L/min) 12 Oxygen Delivery Method Venturi Mask Weight: 83.4 kg Body Mass Index (BMI) 26.4 Intake and Output for Last 24 Hours 11/11/20 11/12/20 11/13/20 23:59 23:59 23:59 Intake Total 3429 / 3429 987.5 / 987.5 Output Total 520 / 520 Balance 2909 / 2909 987.5 / 987.5 Microbiology Past 72 Hours 11/12/20 19:40 Urine, Random Legionella Antigen - Final 11/12/20 19:40 Urine, Random Streptococcus pneumoniae Antigen (M - Final 11/12/20 14:50 Mucosa - Nasopharyngeal Respiratory Panel (PCR) - Final 11/12/20 11:50 Mucosa - Nose SARS-CoV-2 Antigen (Rapid) - Final Laboratory Results 11/12/20 11:45: WBC 8.1, RBC 3.44 L, Hgb 10.6 L, Hct 32.7 L, MCV 95.1 H, MCH 30.8, MCHC 32.4, RDW Std Deviation 47.4 H, RDW Coeff of Mike 13.6, Plt Count 216, MPV 11.1, Immature Gran % (Auto) 0.600, Neut % (Auto) 79.8 H, Lymph % (Auto) 9.3 L, [place] % (Auto) 8.5, Eos % (Auto) 1.4, Baso % (Auto) 0.4, Absolute Neuts (auto) 6.5, Absolute Lymphs (auto) 0.75 L, Nucleated RBC % 0 11/12/20 11:45: Sodium 139, Potassium 3.3 L, Chloride 109 H, Carbon Dioxide 20.0 L, Anion Gap 10, BUN 44 H, Creatinine 2.47 H, Estim Creat Clear Calc 21.47, Est GFR (MDRD) Af Amer 32 L, Est GFR (MDRD) Non-Af 27 L, BUN/Creatinine Ratio 17.8, Glucose 115 H, Calcium 8.4 L, Total Bilirubin 1.00, AST 20, ALT 28, Alkaline Phosphatase 149 H, Troponin I < 0.015, Total Protein 7.1, Albumin 2.7 L, Globulin 4.4 H, Albumin/Globulin Ratio 0.6 L 11/12/20 11:45: Lactic Acid 2.3 H* 11/12/20 11:45: Magnesium 1.8 11/12/20 14:50: COVID-19 (JANINE) Not Detected 11/12/20 17:00: Lactic Acid 1.0 11/12/20 19:40: Urine Color Yellow, Urine Clarity Clear, Urine pH 5.0, Ur Specific [place] 1.015, Urine Protein 30 H, Urine Glucose (UA) Normal, Urine Ketones 5 H, Urine Occult Blood Negative, Urine Nitrite Negative, Urine Bilirubin Negative, Urine Urobilinogen 1 H, Ur Leukocyte Esterase Negative, Urine RBC 0-5 SEEN, Urine WBC 0-5 SEEN, Ur Squamous Epith Cells 0 SEEN, Urine Bacteria 0 SEEN, Hyaline Casts 0-5 SEEN, Fine Granular Casts 0-5 SEEN, Urine Mucus 0 SEEN 11/13/20 04:33: WBC 5.7, RBC 3.10 L, Hgb 9.8 L, Hct 29.9 L, MCV 96.5 H, MCH 31.6, MCHC 32.8, RDW Std Deviation 48.6 H, RDW Coeff of Mike 13.6, Plt Count 168, MPV 10.6, Immature Gran % (Auto) 1.000 H, Neut % (Auto) 73.6 H, Lymph % (Auto) 15.7 L, [place] % (Auto) 7.3, Eos % (Auto) 2.1, Baso % (Auto) 0.3, Absolute Neuts (auto) 4.2, Absolute Lymphs (auto) 0.90, Nucleated RBC % 0 11/13/20 04:33: Sodium 142, Potassium 3.9, Chloride 113 H, Carbon Dioxide 20.0 L , Anion Gap 9, BUN 34 H, Creatinine 1.85 H, Estim Creat Clear Calc 28.66, Est GFR (MDRD) Af Amer 45 L, Est GFR (MDRD) Non-Af 37 L, BUN/Creatinine Ratio 18.4, Glucose 102, Calcium 7.9 L, Total Bilirubin 0.50, AST 21, ALT 24, Alkaline Phosphatase 132 H, Total Protein 6.0 L, Albumin 2.2 L, Globulin 3.8, Albumin/Globulin Ratio 0.6 L Current Medications Acetaminophen (Acetaminophen 325 Mg Tablet) 650 mg PO Q6H PRN PRN PRN Reason: Pain Score 1-10/Temp > 100.7 F Famotidine (Famotidine 20 Mg Tablet) 20 mg PO DAILY [facility] Heparin Sodium (Porcine) (Heparin Injection (Vial) 5,000 Unit/Ml Vial) 5,000 unit SC Q12 [facility] Last Admin: 11/12/20 21:54 Dose: 5,000 unit Documented by: Sodium Chloride () 1,000 mls @ 150 mls/hr IV .Q6H40M [facility] Last Admin: 11/13/20 04:29 Dose: 150 mls/hr Documented by: Ceftriaxone Sodium (Rocephin) 1 gm in 50 mls @ 100 mls/hr IV Q24 LEOBARDO Azithromycin 500 mg/ Dextrose 255 mls @ 250 mls/hr IV Q24 [facility] Sodium Chloride () 250 mls @ 15 mls/hr IV .[id number] PRN PRN Reason: Saline Flush Sodium Chloride () 250 mls @ 15 mls/hr IV .[id number] PRN PRN Reason: Additional IVPB Infusion Ondansetron HCl (Ondansetron 4 Mg/2 Ml Vial) 4 mg IV Q8H PRN PRN PRN Reason: NAUSEA/VOMITING Sodium Chloride (0.9% Saline Lock 10 Ml Syringe) 10 - 40 ml IV UD PRN PRN Reason: SALINE FLUSH Assessment/Plan All Active Problems (Last Reviewed 07/21/20 @ 16:[address] Edinson White MD) CAP (community acquired pneumonia) (Acute) Severe sepsis (Acute) Hypoxia (Acute) Elevated lactic acid level (Acute) Atherosclerosis of coronary artery of [place] heart without angina pectoris (Resolved) H/O coronary artery bypass surgery (Resolved 12/15/99)
--- NOTE | 2020-11-13 07:55 | PN_ITS ---
Patient Problems: Active and Suspected Problems (Last Reviewed 07/21/20 @ 16:[address] Edinson White MD) CAP (community acquired pneumonia) (Acute) Severe sepsis (Acute) Hypoxia (Acute) Elevated lactic acid level (Acute) Reason for Visit: Follow-up on severe sepsis/pneumonia/respiratory failure Subjective: Patient was seen and examined. He is on Airvo; on 12L oxygen. No fever or chills. Objective: Physical exam: General: Alert, Oriented x3, Cooperative, No apparent distress HEENT: Atraumatic, PERRLA, EOMI, Normocephalic Oral: Moist Mucosa Neck: Supple Lungs: Clear to auscultation, Normal air movement Cardiovascular: Regular rate, Regular Rhythm, Normal S1, Normal S2, No murmurs Abdomen: Bowel Sounds Present, Soft, Non Tender, Non-Distended, No Hepato- splenomegaly Extremities: No edema Skin: No rashes, No breakdown Musculoskeletal: No Tenderness to Palpation of Joints or Extremities Lymphatic: No Cervical, Supraclavicular, or Inguinal Adenopathy Neurological: Cranial nerves II-XII grossly intact, Neuro grossly intact Psych/Mental Status: Normal Affect, Appropriate Vitals/I&O's: Vital Signs Temp Pulse Resp BP Pulse Ox 99.9 F H 60 23 H 140/65 H 94 11/13/20 04:00 11/13/20 07:00 11/13/20 07:00 11/13/20 07:00 11/13/20 07:00 Oxygen Flow Rate (L/min) 12 Oxygen Delivery Method Venturi Mask Weight: 83.4 kg Body Mass Index (BMI) 26.4 Intake and Output for Last 24 Hours 11/11/20 11/12/20 11/13/20 23:59 23:59 23:59 Intake Total 3429 / 3429 1435.0 / 1435.0 Output Total 520 / 520 275 / 275 Balance 2909 / 2909 1160.0 / 1160.0 Microbiology Past 72 Hours 11/12/20 19:40 Urine, Random Legionella Antigen - Final 11/12/20 19:40 Urine, Random Streptococcus pneumoniae Antigen (M - Final 11/12/20 14:50 Mucosa - Nasopharyngeal Respiratory Panel (PCR) - Final 11/12/20 11:50 Mucosa - Nose SARS-CoV-2 Antigen (Rapid) - Final Laboratory Results 11/12/20 11:45: WBC 8.1, RBC 3.44 L, Hgb 10.6 L, Hct 32.7 L, MCV 95.1 H, MCH 30.8, MCHC 32.4, RDW Std Deviation 47.4 H, RDW Coeff of Mike 13.6, Plt Count 216, MPV 11.1, Immature Gran % (Auto) 0.600, Neut % (Auto) 79.8 H, Lymph % (Auto) 9.3 L, [place] % (Auto) 8.5, Eos % (Auto) 1.4, Baso % (Auto) 0.4, Absolute Neuts (auto) 6.5, Absolute Lymphs (auto) 0.75 L, Nucleated RBC % 0 11/12/20 11:45: Sodium 139, Potassium 3.3 L, Chloride 109 H, Carbon Dioxide 20.0 L, Anion Gap 10, BUN 44 H, Creatinine 2.47 H, Estim Creat Clear Calc 21.47, Est GFR (MDRD) Af Amer 32 L, Est GFR (MDRD) Non-Af 27 L, BUN/Creatinine Ratio 17.8, Glucose 115 H, Calcium 8.4 L, Total Bilirubin 1.00, AST 20, ALT 28, Alkaline Phosphatase 149 H, Troponin I < 0.015, Total Protein 7.1, Albumin 2.7 L, Globulin 4.4 H, Albumin/Globulin Ratio 0.6 L 11/12/20 11:45: Lactic Acid 2.3 H* 11/12/20 11:45: Magnesium 1.8 11/12/20 14:50: COVID-19 (JANINE) Not Detected 11/12/20 17:00: Lactic Acid 1.0 11/12/20 19:40: Urine Color Yellow, Urine Clarity Clear, Urine pH 5.0, Ur Specific [place] 1.015, Urine Protein 30 H, Urine Glucose (UA) Normal, Urine Ketones 5 H, Urine Occult Blood Negative, Urine Nitrite Negative, Urine Bilirubin Negative, Urine Urobilinogen 1 H, Ur Leukocyte Esterase Negative, Urine RBC 0-5 SEEN, Urine WBC 0-5 SEEN, Ur Squamous Epith Cells 0 SEEN, Urine Bacteria 0 SEEN, Hyaline Casts 0-5 SEEN, Fine Granular Casts 0-5 SEEN, Urine Mucus 0 SEEN 11/13/20 04:33: WBC 5.7, RBC 3.10 L, Hgb 9.8 L, Hct 29.9 L, MCV 96.5 H, MCH 31.6, MCHC 32.8, RDW Std Deviation 48.6 H, RDW Coeff of Mike 13.6, Plt Count 168, MPV 10.6, Immature Gran % (Auto) 1.000 H, Neut % (Auto) 73.6 H, Lymph % (Auto) 15.7 L, [place] % (Auto) 7.3, Eos % (Auto) 2.1, Baso % (Auto) 0.3, Absolute Neuts (auto) 4.2, Absolute Lymphs (auto) 0.90, Nucleated RBC % 0 11/13/20 04:33: Sodium 142, Potassium 3.9, Chloride 113 H, Carbon Dioxide 20.0 L , Anion Gap 9, BUN 34 H, Creatinine 1.85 H, Estim Creat Clear Calc 28.66, Est GFR (MDRD) Af Amer 45 L, Est GFR (MDRD) Non-Af 37 L, BUN/Creatinine Ratio 18.4, Glucose 102, Calcium 7.9 L, Total Bilirubin 0.50, AST 21, ALT 24, Alkaline Phosphatase 132 H, Total Protein 6.0 L, Albumin 2.2 L, Globulin 3.8, Albumin/Globulin Ratio 0.6 L Current Medications Acetaminophen (Acetaminophen 325 Mg Tablet) 650 mg PO Q6H PRN PRN PRN Reason: Pain Score 1-10/Temp > 100.7 F Amiodarone HCl (Amiodarone 200 Mg Tablet) 200 mg PO QHS [facility] Amlodipine Besylate (Amlodipine 5 Mg Tablet) 5 mg PO DAILY [facility] Aspirin (Aspirin E.C. 81 Mg Tablet) 81 mg PO DAILY@0800 [facility] Famotidine (Famotidine 20 Mg Tablet) 20 mg PO DAILY [facility] Heparin Sodium (Porcine) (Heparin Injection (Vial) 5,000 Unit/Ml Vial) 5,000 unit SC Q12 [facility] Last Admin: 11/12/20 21:54 Dose: 5,000 unit Documented by: Ceftriaxone Sodium (Rocephin) 1 gm in 50 mls @ 100 mls/hr IV Q24 [facility] Azithromycin 500 mg/ Dextrose 255 mls @ 250 mls/hr IV Q24 [facility] Sodium Chloride () 250 mls @ 15 mls/hr IV .[id number] PRN PRN Reason: Saline Flush Sodium Chloride () 250 mls @ 15 mls/hr IV .[id number] PRN PRN Reason: Additional IVPB Infusion Isosorbide Mononitrate (Isosorbide Mononitrate 20 Mg Tablet) 20 mg PO BID [facility] Losartan Potassium (Losartan Potassium 100 Mg Tablet) 100 mg PO DAILY [facility] Metoprolol Tartrate (Metoprolol Tartrate 50 Mg Tablet) 50 mg PO BID [facility] Ondansetron HCl (Ondansetron 4 Mg/2 Ml Vial) 4 mg IV Q8H PRN PRN PRN Reason: NAUSEA/VOMITING Pravastatin Sodium (Pravastatin 20 Mg Tablet) 20 mg PO QHS [facility] Sodium Chloride (0.9% Saline Lock 10 Ml Syringe) 10 - 40 ml IV UD PRN PRN Reason: SALINE FLUSH STROKE Vital Signs/Narrative: Vital Signs Temp Pulse Resp BP Pulse Ox 11/13/20 07:00 60 23 H 140/65 H 94 11/13/20 06:57 63 11/13/20 06:36 94 11/13/20 06:00 61 20 H 140/65 H 95 11/13/20 05:00 60 22 H 136/65 H 93 11/13/20 04:00 99.9 F H 60 25 H 141/68 H 93 Medical Necessity - Tobacco Use Smoking Status: Former smoker Tobacco Use: Non-smoker Assessment/Plan All Active Problems (Last Reviewed 07/21/20 @ 16:[address] Edinson White MD) CAP (community acquired pneumonia) (Acute) Severe sepsis (Acute) Hypoxia (Acute) Elevated lactic acid level (Acute) Atherosclerosis of coronary artery of [place] heart without angina pectoris (Resolved) H/O coronary artery bypass surgery (Resolved 12/15/99) 85 year old M with past medical history of hypertension, CAD status post CABG, status post pacemaker who comes in with complaints of fever, cough, generalized weakness ongoing for about 6 days. 1. Severe sepsis secondary to community-acquired pneumonia; CXR showed right si ded pneumonia Repeat CXR shows worsening pneumonia. Blood cultures are pending; admitting lactic acid is 2.3, improved 1.0 Acute rapid COVID-19 antigen test, COVID-19 PCR, legionella and streptococcal antigen, respiratory panel was negative Continue on IV ceftriaxone and azithromycin; chief pharmacist following 2. Acute hypoxic failure secondary to community-acquired pneumonia Continue to encourage use of incentive spirometer 3. Hypokalemia/hypomagnesemia, replaced 4. KARUNA on CKD stage 3b, secondary to #1, improved. Cr improved 2.47 to 1.85 Baseline Creatinine between 1.2-1.4; Off Losartan/hydrochlorothiazide; Repeat blood work in a.m. 5. Hypertension, BP is uncontrolled, continue on home blood pressure medications except for losartan Continue to monitor vitals 6. CAD status post stent, status post CABG/status post pacemaker Continue on aspirin, isosorbide, metoprolol, pravastatin, amiodarone 7. DVT prophylaxis with heparin subcu 8. GI Prophylaxis with famotidine p.o. 9. Code Status: DNR CCA, no intubation Inpatient E&M: 15246 [facility] Hosp L3
[2020-11-13 08:21] LABS: Magnesium 2.5 mg/dL (1.6-2.6)
[2020-11-13] MEDS: Ceftriaxone 1 GM/50 ML BAG IV (09:31)
[2020-11-13] MEDS: Heparin Injection (Vial) 5,000 UNIT/ML VIAL 5000 UNIT SC ×2 (09:31→22:11)
[2020-11-13] MEDS: Furosemide 20 MG/2 ML VIAL IV (09:31)
[2020-11-13] MEDS: Famotidine 20 MG Tablet PO (09:32)
[2020-11-13] MEDS: Metoprolol Tartrate 50 MG Tablet PO ×2 (09:32→22:11)
[2020-11-13] MEDS: Aspirin E.C. 81 MG Tablet PO (09:32)
[2020-11-13] MEDS: amLODIPine 5 MG Tablet PO (09:33)
[2020-11-13] MEDS: Isosorbide Mononitrate 20 MG Tablet PO ×2 (09:33→22:10)
[2020-11-13] MEDS: Ipratropium/Albuterol Sulfate 3 ML AMPUL.NEB INHALATION ×3 (11:07→19:36)
[2020-11-13] MEDS: 0.9% Saline Lock 10 ML Syringe IV (14:13)
[2020-11-13] MEDS: Amiodarone 200 MG Tablet PO (22:09)
[2020-11-13] MEDS: Pravastatin 20 MG Tablet PO (22:10)
[2020-11-14] VITALS (23 sets, daily range): BP systolic 124–158; BP diastolic 59–87; PULSE 58–72; RESP 16–24; TEMP 36.5–36.8; O2SAT 87–98
[2020-11-14 04:47] LABS: Absolute Lymphocyte Count 0.56 X10^3/uL (0.83-4.51); Absolute Neutrophil Count 4.1 X10^3/uL (2.0-7.7); Basophil# 0.01 X10^3/uL; Basophil% 0.2 % (0-1); Hematocrit 28.7 % (40-54); Hemoglobin 9.4 g/dL (13.0-16.5); Lymphocyte # 0.56 X10^3/ul (4.0); Lymphocyte % 11.7 % (19-41); Mean Corp Hgb Conc 32.8 g/dL (32-36); Mean Corpuscular Hgb 31.1 pg (27.0-32.0); Mean Platelet Vol. 10.3 fl (6.2-12.0); Monocyte% 2.1 % (0-10); NRBC Flagged by Analyzer 0 % (0-5); Neutrophil # 4.07 X10^3/uL (2.7-7.7); Neutrophil % 84.7 % (47-70); POSITIVE DIFFERENTIAL YES; Platelet Count 176 K/mm3 (150-450); RBC Distribution Width CV 13.6 % (11.6-14.6); RBC Distribution Width SD 46.7 fl (35.1-43.9); Red Blood Count 3.02 M/mm3 (4.6-6.2); White Blood Count 4.8 K/mm3 (4.4-11.0)
[2020-11-14 04:52] LABS: Differential Indicated SCAN CRITERIA MET
[2020-11-14 05:04] LABS: ALB/GLOB Ratio 0.6 RATIO (0.9-2.4); AST(SGOT) 23 U/L (15-37); Alanine Aminotransfer ALT/SGPT 32 U/L (16-61); Albumin, Serum 2.2 g/dL (3.2-5.0); Alkaline Phosphatase 134 U/L (45-117); Anion Gap 8 (5-15); BUN 30 mg/dL (7-18); BUN/Creat Ratio 16.9 RATIO (10-20); Calcium,Total 8.2 mg/dL (8.5-10.1); Chloride 110 mmol/L (98-107); Creatinine, Serum 1.78 mg/dL (0.70-1.30); EST Glomerular Filtration Rate 39 mL/min (>60); Est Glom Filt Rate - Afr Amer 47 mL/min (>60); Estimated Creatinine Clearance 29.79 ml/min; Globulin 3.9 g/dL (2.2-4.2); Glucose 149 mg/dL (74-106); Magnesium 2.2 mg/dL (1.6-2.6); Protein, Total 6.1 g/dL (6.4-8.2); Sodium Level 140 mmol/L (136-145)
--- NOTE | 2020-11-14 05:51 | PN_ITS ---
Subjective: The patient was seen and examined at the bedside this morning. Events from the last 24 hours have been reviewed. The patient is currently afebrile, hemodynamically stable and maintaining appropriate oxygen saturations on 4 L/min via nasal cannula. The patient reported to me this morning that he does become short of breath when he begins to cough. However, his symptoms have improved since being admitted to the hospital. Objective: The patient's most recent lab work, culture data and imaging studies have all been personally reviewed. Strep and urine Legionella antigens were negative. Respiratory viral panel was negative. Blood cultures have shown no growth to date. Rapid coronavirus antigen testing was negative. General: Alert, Cooperative, No apparent distress HEENT: Atraumatic, Normocephalic Oral: No Gingival or Mucosal Lesions/ Ulcerations Neck: Supple, No Nodes, Trachea Midline Lungs: No rhonchi, No wheeze, No rales, Diminished Cardiovascular: Regular rate, Regular Rhythm Abdomen: Bowel Sounds Present, Soft, Non Tender Extremities: No clubbing, No cyanosis, No edema Skin: No breakdown Musculoskeletal: No Tenderness to Palpation of Joints or Extremities Lymphatic: No Cervical, Supraclavicular, or Inguinal Adenopathy Neurological: Cranial nerves II-XII grossly intact, Neuro grossly intact Psych/Mental Status: Normal Affect Vital Signs Temp Pulse Resp BP Pulse Ox 97.9 F 60 24 H 137/72 H 95 11/14/20 04:00 11/14/20 05:00 11/14/20 05:00 11/14/20 05:00 11/14/20 05:00 Oxygen Flow Rate (L/min) 6 Oxygen Delivery Method Nasal Cannula Weight: 183 lb 13.848 oz Body Mass Index (BMI) 26.4 Intake and Output for Last 24 Hours 11/12/20 11/13/20 11/14/20 23:59 23:59 23:59 Intake Total 3429 / 3429 2140.0 / 2140.0 Output Total 520 / 520 1525 / 1825 475 / 475 Balance 2909 / 2909 615.0 / 315.0 -475 / -475 Labs (Last 48 Hours) 11/12/20 11/12/20 11/12/20 11:45 11:45 11:45 WBC 8.1 RBC 3.44 L Hgb 10.6 L Hct 32.7 L MCV 95.1 H MCH 30.8 MCHC 32.4 RDW Std Deviation 47.4 H RDW Coeff of Mike 13.6 Plt Count 216 MPV 11.1 Immature Gran % (Auto) 0.600 Neut % (Auto) 79.8 H Lymph % (Auto) 9.3 L [place] % (Auto) 8.5 Eos % (Auto) 1.4 Baso % (Auto) 0.4 Absolute Neuts (auto) 6.5 Absolute Lymphs (auto) 0.75 L Nucleated RBC % 0 Sodium 139 Potassium 3.3 L Chloride 109 H Carbon Dioxide 20.0 L Anion Gap 10 BUN 44 H Creatinine 2.47 H Estim Creat Clear Calc 21.47 Est GFR (MDRD) Af Amer 32 L Est GFR (MDRD) Non-Af 27 L BUN/Creatinine Ratio 17.8 Glucose 115 H Lactic Acid 2.3 H* Calcium 8.4 L Magnesium Total Bilirubin 1.00 AST 20 ALT 28 Alkaline Phosphatase 149 H Troponin I < 0.015 Total Protein 7.1 Albumin 2.7 L Globulin 4.4 H Albumin/Globulin Ratio 0.6 L Urine Color Urine Clarity Urine pH Ur Specific [place] Urine Protein Urine Glucose (UA) Urine Ketones Urine Occult Blood Urine Nitrite Urine Bilirubin Urine Urobilinogen Ur Leukocyte Esterase Urine RBC Urine WBC Ur Squamous Epith Cells Urine Bacteria Hyaline Casts Fine Granular Casts Urine Mucus COVID-19 (JANINE) 11/12/20 11/12/20 11/12/20 11:45 14:50 17:00 WBC RBC Hgb Hct MCV MCH MCHC RDW Std Deviation RDW Coeff of Mike Plt Count MPV Immature Gran % (Auto) Neut % (Auto) Lymph % (Auto) [place] % (Auto) Eos % (Auto) Baso % (Auto) Absolute Neuts (auto) Absolute Lymphs (auto) Nucleated RBC % Sodium Potassium Chloride Carbon Dioxide Anion Gap BUN Creatinine Estim Creat Clear Calc Est GFR (MDRD) Af Amer Est GFR (MDRD) Non-Af BUN/Creatinine Ratio Glucose Lactic Acid 1.0 Calcium Magnesium 1.8 Total Bilirubin AST ALT Alkaline Phosphatase Troponin I Total Protein Albumin Globulin Albumin/Globulin Ratio Urine Color Urine Clarity Urine pH Ur Specific [place] Urine Protein Urine Glucose (UA) Urine Ketones Urine Occult Blood Urine Nitrite Urine Bilirubin Urine Urobilinogen Ur Leukocyte Esterase Urine RBC Urine WBC Ur Squamous Epith Cells Urine Bacteria Hyaline Casts Fine Granular Casts Urine Mucus COVID-19 (JANINE) Not Detected 11/12/20 11/13/20 11/13/20 19:40 04:33 04:33 WBC 5.7 RBC 3.10 L Hgb 9.8 L Hct 29.9 L MCV 96.5 H MCH 31.6 MCHC 32.8 RDW Std Deviation 48.6 H RDW Coeff of Mike 13.6 Plt Count 168 MPV 10.6 Immature Gran % (Auto) 1.000 H Neut % (Auto) 73.6 H Lymph % (Auto) 15.7 L [place] % (Auto) 7.3 Eos % (Auto) 2.1 Baso % (Auto) 0.3 Absolute Neuts (auto) 4.2 Absolute Lymphs (auto) 0.90 Nucleated RBC % 0 Sodium 142 Potassium 3.9 Chloride 113 H Carbon Dioxide 20.0 L Anion Gap 9 BUN 34 H Creatinine 1.85 H Estim Creat Clear Calc 28.66 Est GFR (MDRD) Af Amer 45 L Est GFR (MDRD) Non-Af 37 L BUN/Creatinine Ratio 18.4 Glucose 102 Lactic Acid Calcium 7.9 L Magnesium Total Bilirubin 0.50 AST 21 ALT 24 Alkaline Phosphatase 132 H Troponin I Total Protein 6.0 L Albumin 2.2 L Globulin 3.8 Albumin/Globulin Ratio 0.6 L Urine Color Yellow Urine Clarity Clear Urine pH 5.0 Ur Specific [place] 1.015 Urine Protein 30 H Urine Glucose (UA) Normal Urine Ketones 5 H Urine Occult Blood Negative Urine Nitrite Negative Urine Bilirubin Negative Urine Urobilinogen 1 H Ur Leukocyte Esterase Negative Urine RBC 0-5 SEEN Urine WBC 0-5 SEEN Ur Squamous Epith Cells 0 SEEN Urine Bacteria 0 SEEN Hyaline Casts 0-5 SEEN Fine Granular Casts 0-5 SEEN Urine Mucus 0 SEEN COVID-19 (JANINE) 11/13/20 11/14/20 11/14/20 04:33 04:40 04:40 WBC 4.8 RBC 3.02 L Hgb 9.4 L Hct 28.7 L MCV 95.0 H MCH 31.1 MCHC 32.8 RDW Std Deviation 46.7 H RDW Coeff of Mike 13.6 Plt Count 176 MPV 10.3 Immature Gran % (Auto) 1.300 H Neut % (Auto) 84.7 H Lymph % (Auto) 11.7 L [place] % (Auto) 2.1 Eos % (Auto) 0.0 Baso % (Auto) 0.2 Absolute Neuts (auto) 4.1 Absolute Lymphs (auto) 0.56 L Nucleated RBC % 0 Sodium 140 Potassium 4.0 Chloride 110 H Carbon Dioxide 22.0 Anion Gap 8 BUN 30 H Creatinine 1.78 H Estim Creat Clear Calc 29.79 Est GFR (MDRD) Af Amer 47 L Est GFR (MDRD) Non-Af 39 L BUN/Creatinine Ratio 16.9 Glucose 149 H Lactic Acid Calcium 8.2 L Magnesium 2.5 2.2 Total Bilirubin 0.40 AST 23 ALT 32 Alkaline Phosphatase 134 H Troponin I Total Protein 6.1 L Albumin 2.2 L Globulin 3.9 Albumin/Globulin Ratio 0.6 L Urine Color Urine Clarity Urine pH Ur Specific [place] Urine Protein Urine Glucose (UA) Urine Ketones Urine Occult Blood Urine Nitrite Urine Bilirubin Urine Urobilinogen Ur Leukocyte Esterase Urine RBC Urine WBC Ur Squamous Epith Cells Urine Bacteria Hyaline Casts Fine Granular Casts Urine Mucus COVID-19 (JANINE) Microbiology 11/12/20 19:40 Urine, Clean Catch Urine Culture - Preliminary Culture exhibits no growth. 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 Electronically Signed: Adrian Sierra MD at 12:49 EDT , Service support , Chest X-Ray 11/13/20 07:10 IMPRESSION: Acute focal infiltrate suspicious for pneumonia cannot exclude small bilateral effusions. Status post sternotomy. Pacemaker. Electronically Signed: Christy Chance MD at 8:06 EDT Tel , Service support , Medical Necessity - Tobacco Use Smoking Status: Former smoker Tobacco Use: Non-smoker Assessment/Plan All Active Problems (Last Reviewed 07/21/20 @ 16:[address] Edinson White MD) CAP (community acquired pneumonia) (Acute) Severe sepsis (Acute) Hypoxia (Acute) Elevated lactic acid level (Acute) Atherosclerosis of coronary artery of [place] heart without angina pectoris (Resolved) H/O coronary artery bypass surgery (Resolved 12/15/99) RECOMMENDATIONS: 1. Continue antimicrobials to complete 7-day treatment course. 2. Wean supplemental oxygen to maintain saturations at or above 90%. 3. Encourage incentive spirometer use and mobilize patient as tolerated. 4. The patient is medically stable for transfer out of the intensive care unit. IMPRESSIONS: 1. Acute hypoxemic respiratory failure/severe sepsis secondary to right lower lobe pneumonia Plan to continue current supportive measures, including supplemental oxygen to maintain saturations at or above 90%. Continue antimicrobials, with plans to complete a 7-day treatment course. Encourage incentive spirometer use and mobilize patient as tolerated. 2. Acute on chronic kidney disease Improving. Likely secondary to prerenal etiology. Continue to hold diuretics. Urine output to be monitored. No current indication for renal replacement therapy. 3. Coronary artery disease status post CABG/status post pacemaker secondary to sick sinus syndrome/hypertension Complicates care, management, recovery and prognosis. Continue home medications as indicated. This note was generated with [employer] software. It may contain incorrect words, spelling, and punctuation that were not noted in checking the note before signing. Inpatient E&M: 49279 Subs Hosp L2
[2020-11-14] MEDS: 0.9% Saline Lock 10 ML Syringe IV ×2 (06:29→10:59)
[2020-11-14] MEDS: Ipratropium/Albuterol Sulfate 3 ML AMPUL.NEB INHALATION ×4 (06:45→18:53)
--- NOTE | 2020-11-14 07:19 | PN_ITS ---
Patient Problems: Active and Suspected Problems (Last Reviewed 07/21/20 @ 16:[address] Edinson White MD) CAP (community acquired pneumonia) (Acute) Severe sepsis (Acute) Hypoxia (Acute) Elevated lactic acid level (Acute) Reason for Visit: Follow-up for severe sepsis secondary to pneumonia. Objective: Afebrile, on 4 L of oxygen. Heart rate and blood pressure controlled. Denies chest pain or shortness of breath at rest. Patient reports improvement in shortness of breath. Mild cough. Physical exam General: Alert, Oriented x3, Cooperative HEENT: Atraumatic, PERRLA, EOMI, Normocephalic Oral: No Gingival or Mucosal Lesions/ Ulcerations Neck: Supple, No JVD, Negative Carotid Bruits Lungs: Air entry diminished in bilateral lung bases. No crepitation/rhonchi Cardiovascular: Regular rate, Regular Rhythm, Normal S1, Normal S2, ejection systolic murmur over right second ICS Abdomen: Bowel Sounds Present, Soft, Non Tender, Non-Distended : No renal angle tenderness. No suprapubic tenderness. Extremities: No edema, Capillary Refill Less than 3 Seconds Skin: No rashes, No breakdown Musculoskeletal: No Tenderness to Palpation of Joints or Extremities Neurological: Cranial nerves II-XII grossly intact, Deep Tendon Reflexes 2+/4 and Symmetrical, Neuro grossly intact Psych/Mental Status: Normal Affect, Appropriate. Vitals/I&O's: Vital Signs Temp Pulse Resp BP Pulse Ox 97.9 F 60 21 H 152/74 H 93 11/14/20 04:00 11/14/20 06:45 11/14/20 06:45 11/14/20 06:00 11/14/20 06:45 Oxygen Flow Rate (L/min) 4 Oxygen Delivery Method Nasal Cannula Weight: 174 lb 9.698 oz Body Mass Index (BMI) 26.4 Intake and Output for Last 24 Hours 11/12/20 11/13/20 11/14/20 23:59 23:59 23:59 Intake Total 3429 / 3429 2140.0 / 2140.0 Output Total 520 / 520 1525 / 1825 475 / 475 Balance 2909 / 2909 615.0 / 315.0 -475 / -475 Microbiology Past 72 Hours 11/12/20 19:40 Urine, Clean Catch Urine Culture - Preliminary Culture exhibits no growth. 11/12/20 19:40 Urine, Random Legionella Antigen - Final 11/12/20 19:40 Urine, Random Streptococcus pneumoniae Antigen (M - Final 11/12/20 14:50 Mucosa - Nasopharyngeal Respiratory Panel (PCR) - Final 11/12/20 11:50 Mucosa - Nose SARS-CoV-2 Antigen (Rapid) - Final Laboratory Results 11/13/20 04:33: Magnesium 2.5 11/14/20 04:40: WBC 4.8, RBC 3.02 L, Hgb 9.4 L, Hct 28.7 L, MCV 95.0 H, MCH 31.1, MCHC 32.8, RDW Std Deviation 46.7 H, RDW Coeff of Mike 13.6, Plt Count 176, MPV 10.3, Immature Gran % (Auto) 1.300 H, Neut % (Auto) 84.7 H, Lymph % (Auto) 11.7 L, [place] % (Auto) 2.1, Eos % (Auto) 0.0, Baso % (Auto) 0.2, Absolute Neuts (auto) 4.1, Absolute Lymphs (auto) 0.56 L, Nucleated RBC % 0 11/14/20 04:40: Sodium 140, Potassium 4.0, Chloride 110 H, Carbon Dioxide 22.0, Anion Gap 8, BUN 30 H, Creatinine 1.78 H, Estim Creat Clear Calc 29.79, Est GFR (MDRD) Af Amer 47 L, Est GFR (MDRD) Non-Af 39 L, BUN/Creatinine Ratio 16.9, Glucose 149 H, Calcium 8.2 L, Magnesium 2.2, Total Bilirubin 0.40, AST 23, ALT 32, Alkaline Phosphatase 134 H, Total Protein 6.1 L, Albumin 2.2 L, Globulin 3.9, Albumin/Globulin Ratio 0.6 L Current Medications Acetaminophen (Acetaminophen 325 Mg Tablet) 650 mg PO Q6H PRN PRN PRN Reason: Pain Score 1-10/Temp > 100.7 F Albuterol/Ipratropium (Ipratropium/Albuterol Sulfate 3 Ml Ampul.Neb) 3 ml INHALATION Q4HWA.RT [facility]O Last Admin: 11/14/20 06:45 Dose: 3 ml Documented by: Amiodarone HCl (Amiodarone 200 Mg Tablet) 200 mg PO QHS [facility] Last Admin: 11/13/20 22:09 Dose: 200 mg Documented by: Amlodipine Besylate (Amlodipine 5 Mg Tablet) 5 mg PO DAILY [facility] Last Admin: 11/13/20 09:33 Dose: 5 mg Documented by: Aspirin (Aspirin E.C. 81 Mg Tablet) 81 mg PO DAILY@0800 [facility] Last Admin: 11/13/20 09:32 Dose: 81 mg Documented by: Famotidine (Famotidine 20 Mg Tablet) 20 mg PO DAILY [facility] Last Admin: 11/13/20 09:32 Dose: 20 mg Documented by: Heparin Sodium (Porcine) (Heparin Injection (Vial) 5,000 Unit/Ml Vial) 5,000 unit SC Q12 [facility] Last Admin: 11/13/20 22:11 Dose: 5,000 unit Documented by: Ceftriaxone Sodium (Rocephin) 1 gm in 50 mls @ 100 mls/hr IV Q24 [facility] Last Infusion: 11/13/20 10:33 Dose: Infused Documented by: Azithromycin 500 mg/ Dextrose 255 mls @ 250 mls/hr IV Q24 [facility] Last Infusion: 11/13/20 12:22 Dose: Infused Documented by: Sodium Chloride () 250 mls @ 15 mls/hr IV .[id number] PRN PRN Reason: Saline Flush Sodium Chloride () 250 mls @ 15 mls/hr IV .[id number] PRN PRN Reason: Additional IVPB Infusion Isosorbide Mononitrate (Isosorbide Mononitrate 20 Mg Tablet) 20 mg PO BID [facility] Last Admin: 11/13/20 22:10 Dose: 20 mg Documented by: Methylprednisolone (Methylprednisolone 40 Mg/Ml Vial) 40 mg IV Q8 [facility] Last Admin: 11/14/20 06:29 Dose: 40 mg Documented by: Metoprolol Tartrate (Metoprolol Tartrate 50 Mg Tablet) 50 mg PO BID [facility] Last Admin: 11/13/20 22:11 Dose: 50 mg Documented by: Ondansetron HCl (Ondansetron 4 Mg/2 Ml Vial) 4 mg IV Q8H PRN PRN PRN Reason: NAUSEA/VOMITING Pravastatin Sodium (Pravastatin 20 Mg Tablet) 20 mg PO QHS [facility] Last Admin: 11/13/20 22:10 Dose: 20 mg Documented by: Sodium Chloride (0.9% Saline Lock 10 Ml Syringe) 10 - 40 ml IV UD PRN PRN Reason: SALINE FLUSH Last Admin: 11/14/20 06:29 Dose: 20 ml Documented by: STROKE Vital Signs/Narrative: Vital Signs Temp Pulse Resp BP Pulse Ox 11/14/20 06:45 60 21 H 93 11/14/20 06:00 60 20 H 152/74 H 95 11/14/20 05:00 60 24 H 137/72 H 95 11/14/20 04:00 97.9 F 61 20 H 142/87 H 93 Medical Necessity - Tobacco Use Smoking Status: Former smoker Tobacco Use: Non-smoker Assessment/Plan All Active Problems (Last Reviewed 07/21/20 @ 16:[address] Edinson White MD) CAP (community acquired pneumonia) (Acute) Severe sepsis (Acute) Hypoxia (Acute) Elevated lactic acid level (Acute) Atherosclerosis of coronary artery of [place] heart without angina pectoris (Resolved) H/O coronary artery bypass surgery (Resolved 12/15/99) 85 year old M with past medical history of hypertension, CAD status post CABG, status post pacemaker who comes in with complaints of fever, cough, generalized weakness ongoing for about 6 days. 1. Severe sepsis secondary to community-acquired pneumonia; CXR showed right sided pneumonia with worsening infiltrate in repeat chest x-ray. Blood cultures x2 are pending. Urine culture no growth. Urinary antigens, respiratory panel and SARS-CoV-2 rapid antigen were negative. Repeat CXR shows worsening pneumonia. Blood cultures are pending; admitting lactic acid is 2.3, improved 1.0 Continue on IV ceftriaxone and azithromycin; switch crew supervisor following 2. Acute hypoxic failure secondary to community-acquired pneumonia Continue to encourage use of incentive spirometer 3. Hypokalemia/hypomagnesemia, replaced: Repeat labs shows normal sodium, potassium and magnesium. 4. KARUNA on CKD stage 3b, secondary to #1, improved. Cr improved 2.47 to 1.85 Baseline Creatinine between 1.2-1.4; Off Losartan/hydrochlorothiazide; BUN/creatinine showing improving trend. 5. Hypertension, BP was uncontrolled, currently normal range. 6. CAD status post stent, status post CABG/status post pacemaker Continue on aspirin, isosorbide, metoprolol, pravastatin, amiodarone 7. DVT prophylaxis with heparin subcu 8. GI Prophylaxis with famotidine p.o. patient quitting smoking about 30 years ago. Inpatient E&M: 26313 Subs Hosp L3
--- NOTE | 2020-11-14 10:35 | CASEMGMT ---
JURGEN WASHINGTON Face to Face with patient for initial transition planning/care coordination assessment. JURGEN WASHINGTON introduced self and role at [facility]. Patient sitting in chair, alert and oriented. Patient willing to participate in assessment and is able to answer all questions appropriately. Care providers, pharmacy, and demographics verified. Patient wishes to discharge home, will monitor for need for HHC. Patient states he has no further needs or concerns at this time. CM to follow for discharge planning needs that may arise. 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 2 steps and railing to enter the home. Transportation: self/ DME/HHC: Patient states he has shower chair, cane, walker, rollator at home. Patient denies previous HHC. Will monitor how patient progresses with therapy. Patient currently on oxygen 4lpm, no home oxygen, will monitor for home oxygen. JURGEN WASHINGTON provided patient with list of DME companies at this time. Disposition Plan: Patient to discharge home with family support and follow-up plans in place. Yanelis NEGRON, RN, CM
[2020-11-14] MEDS: Heparin Injection (Vial) 5,000 UNIT/ML VIAL 5000 UNIT SC ×2 (10:45→22:21)
[2020-11-14] MEDS: Aspirin E.C. 81 MG Tablet PO (10:45)
[2020-11-14] MEDS: Metoprolol Tartrate 50 MG Tablet PO ×2 (10:46→22:21)
[2020-11-14] MEDS: Famotidine 20 MG Tablet PO (10:47)
[2020-11-14] MEDS: Isosorbide Mononitrate 20 MG Tablet PO ×2 (10:47→22:21)
[2020-11-14] MEDS: amLODIPine 5 MG Tablet PO (10:47)
[2020-11-14] MEDS: Ceftriaxone 1 GM/50 ML BAG IV (11:00)
--- NOTE | 2020-11-14 13:13 | CASEMGMT ---
Pt aware as per CM that POA/LW forms are not on file. LAUREN Larkin
--- NOTE | 2020-11-14 13:56 | CASEMGMT ---
Palliative screening tool completed due to Lace/Strata 3. Patient is not meeting criteria at this time.
--- NOTE | 2020-11-14 14:17 | NURSING ---
report called to MS3 RN, to room 312
[2020-11-14] MEDS: Amiodarone 200 MG Tablet PO (22:21)
[2020-11-14] MEDS: Pravastatin 20 MG Tablet PO (22:22)
[2020-11-15] VITALS (10 sets, daily range): BP systolic 126–153; BP diastolic 59–63; PULSE 60–88; RESP 15–18; TEMP 36.7–37.3; O2SAT 90–96
--- NOTE | 2020-11-15 07:35 | PCM.PN.HOSP ---
Patient Problems: Active and Suspected Problems (Last Reviewed 07/21/20 @ 16:[address] Edinson White MD) CAP (community acquired pneumonia) (Acute) Severe sepsis (Acute) Hypoxia (Acute) Elevated lactic acid level (Acute) Objective: Patient on 2 L of oxygen. Vitals/I&O's: Vital Signs Temp Pulse Resp BP Pulse Ox 98.2 F 61 15 133/60 H 96 11/15/20 02:17 11/15/20 03:00 11/15/20 02:17 11/15/20 02:17 11/15/20 02:17 Oxygen Flow Rate (L/min) 2 Oxygen Delivery Method Nasal Cannula Weight: 177 lb Body Mass Index (BMI) 26.4 Intake and Output for Last 24 Hours 11/13/20 11/14/20 11/15/20 23:59 23:59 23:59 Intake Total 2140.0 / 2140.0 1035 / 1035 750 / 750 Output Total 1525 / 1825 475 / 475 Balance 615.0 / 315.0 560 / 560 750 / 750 Microbiology Past 72 Hours 11/12/20 11:45 Blood Culture (Wb) - Anticubital Left Blood Culture - Preliminary No growth in 48 hours. 11/12/20 12:16 Blood Culture (Wb) - Anticubital Right Blood Culture - Preliminary No growth in 48 hours. 11/12/20 19:40 Urine, Clean Catch Urine Culture - Preliminary Culture exhibits no growth. 11/12/20 19:40 Urine, Random Legionella Antigen - Final 11/12/20 19:40 Urine, Random Streptococcus pneumoniae Antigen (M - Final 11/12/20 14:50 Mucosa - Nasopharyngeal Respiratory Panel (PCR) - Final 11/12/20 11:50 Mucosa - Nose SARS-CoV-2 Antigen (Rapid) - Final Current Medications Acetaminophen (Acetaminophen 325 Mg Tablet) 650 mg PO Q6H PRN PRN PRN Reason: Pain Score 1-10/Temp > 100.7 F Albuterol/Ipratropium (Ipratropium/Albuterol Sulfate 3 Ml Ampul.Neb) 3 ml INHALATION Q4HWA.RT [facility] Last Admin: 11/14/20 18:53 Dose: 3 ml Documented by: Amiodarone HCl (Amiodarone 200 Mg Tablet) 200 mg PO QHS [facility] Last Admin: 11/14/20 22:21 Dose: 200 mg Documented by: Amlodipine Besylate (Amlodipine 5 Mg Tablet) 5 mg PO DAILY [facility] Last Admin: 11/14/20 10:47 Dose: 5 mg Documented by: Aspirin (Aspirin E.C. 81 Mg Tablet) 81 mg PO DAILY@0800 [facility] Last Admin: 11/14/20 10:45 Dose: 81 mg Documented by: Famotidine (Famotidine 20 Mg Tablet) 20 mg PO DAILY [facility] Last Admin: 11/14/20 10:47 Dose: 20 mg Documented by: Heparin Sodium (Porcine) (Heparin Injection (Vial) 5,000 Unit/Ml Vial) 5,000 unit SC Q12 [facility] Last Admin: 11/14/20 22:21 Dose: 5,000 unit Documented by: Ceftriaxone Sodium (Rocephin) 1 gm in 50 mls @ 100 mls/hr IV Q24 [facility] Last Infusion: 11/14/20 14:56 Dose: Infused Documented by: Azithromycin 500 mg/ Dextrose 255 mls @ 250 mls/hr IV Q24 [facility] Last Infusion: 11/14/20 14:56 Dose: Infused Documented by: Sodium Chloride () 250 mls @ 15 mls/hr IV .[id number] PRN PRN Reason: Saline Flush Sodium Chloride () 250 mls @ 15 mls/hr IV .[id number] PRN PRN Reason: Additional IVPB Infusion Isosorbide Mononitrate (Isosorbide Mononitrate 20 Mg Tablet) 20 mg PO BID [facility] Last Admin: 11/14/20 22:21 Dose: 20 mg Documented by: Metoprolol Tartrate (Metoprolol Tartrate 50 Mg Tablet) 50 mg PO BID [facility] Last Admin: 11/14/20 22:21 Dose: 50 mg Documented by: Ondansetron HCl (Ondansetron 4 Mg/2 Ml Vial) 4 mg IV Q8H PRN PRN PRN Reason: NAUSEA/VOMITING Pravastatin Sodium (Pravastatin 20 Mg Tablet) 20 mg PO QHS [facility] Last Admin: 11/14/20 22:22 Dose: 20 mg Documented by: Sodium Chloride (0.9% Saline Lock 10 Ml Syringe) 10 - 40 ml IV UD PRN PRN Reason: SALINE FLUSH Last Admin: 11/14/20 10:59 Dose: 10 ml Documented by: Medical Necessity - Tobacco Use Smoking Status: Former smoker Tobacco Use: Non-smoker Assessment/Plan All Active Problems (Last Reviewed 07/21/20 @ 16:[address] Edinson White MD) CAP (community acquired pneumonia) (Acute) Severe sepsis (Acute) Hypoxia (Acute) Elevated lactic acid level (Acute) Atherosclerosis of coronary artery of [place] heart without angina pectoris (Resolved) H/O coronary artery bypass surgery (Resolved 12/15/99) 85 year old M with past medical history of hypertension, CAD status post CABG, status post pacemaker who comes in with complaints of fever, cough, generalized weakness ongoing for about 6 days. 1. Severe sepsis secondary to community-acquired pneumonia; CXR showed right sided pneumonia with worsening infiltrate in repeat chest x-ray. Blood cultures x2 are pending. Urine culture no growth. Urinary antigens, respiratory panel and SARS-CoV-2 rapid antigen were negative. Repeat CXR shows worsening pneumonia. Blood cultures are pending; admitting lactic acid is 2.3, improved 1.0 Continue on IV ceftriaxone and azithromycin; senior analytic consultant following 2. Acute hypoxic failure secondary to community-acquired pneumonia Continue to encourage use of incentive spirometer 3. Hypokalemia/hypomagnesemia, replaced: Repeat labs shows normal sodium, potassium and magnesium. 4. KARUNA on CKD stage 3b, secondary to #1, improved. Cr improved 2.47 to 1.85 Baseline Creatinine between 1.2-1.4; Off Losartan/hydrochlorothiazide; BUN/creatinine showing improving trend. 5. Hypertension, BP was uncontrolled, currently normal range. 6. CAD status post stent, status post CABG/status post pacemaker Continue on aspirin, isosorbide, metoprolol, pravastatin, amiodarone 7. DVT prophylaxis with heparin subcu 8. GI Prophylaxis with famotidine p.o. patient quitting smoking about 30 years ago.
[2020-11-15] MEDS: Isosorbide Mononitrate 20 MG Tablet PO (08:25)
[2020-11-15] MEDS: amLODIPine 5 MG Tablet PO (08:25)
[2020-11-15] MEDS: Famotidine 20 MG Tablet PO (08:25)
[2020-11-15] MEDS: Heparin Injection (Vial) 5,000 UNIT/ML VIAL 5000 UNIT SC (08:26)
[2020-11-15] MEDS: Aspirin E.C. 81 MG Tablet PO (08:26)
[2020-11-15] MEDS: Metoprolol Tartrate 50 MG Tablet PO (08:26)
--- NOTE | 2020-11-15 09:41 | PCM.DC ---
- Discharge Diagnoses Current Active Problems: Current Active and Chronic Problems (Last Reviewed 07/21/20 @ 16:[address] Edinson White MD) CAP (community acquired pneumonia) (Acute) Severe sepsis (Acute) Hypoxia (Acute) Dzzvt-hz-qlhwvey kidney injury (Chronic) Elevated lactic acid level (Acute) Presence of permanent cardiac pacemaker (Chronic 07/21/18) 01/11/2011, generator change 07/21/18 Sick sinus syndrome (Chronic) Secondary pulmonary arterial hypertension (Chronic) Essential (primary) hypertension (Chronic) HLD (hyperlipidemia) (Chronic) You will use the following diet at home:: Cardiac Your food should be the consistency of: Regular Discharge Activity: May Not Drive Call your doctor if you observe: Fever of 101 or Higher, Coldness, Increased Pain, Numbness or Tingling, Change in Color, Inability to urinate, Inability to have a bowel movement, Shortness of breath, Dizziness, Fainting spells, Swelling in the ankles, Chest pain, Prolonged hiccoughing, Increased palpitations (irregular heartbeat), Calf discomfort, Uncontrolled pain Allergies/Adverse Reactions: Allergies No Known Allergies Allergy (Verified 11/12/20 11:22) Medications to take at Discharge Amiodarone HCl 200 mg PO QHS 11/12/20 Amlodipine Besylate [Norvasc] 5 mg PO QDAY 11/12/20 Aspirin E.C. [Ecotrin] 81 mg PO DAILY@0800 11/12/20 Isosorbide Mononitrate [Monoket] 20 mg PO BID 11/12/20 Metoprolol Tartrate [Lopressor (beta juan josé)] 50 mg PO BID 11/12/20 Pravastatin Sodium 20 mg PO QHS 11/12/20 Losartan Potassium 100 mg PO DAILY #0 11/15/20 levoFLOXacin tablet [Levaquin tablet] 500 mg PO DAILY #3 tablet 11/15/20 The following prescriptions were given: levoFLOXacin tablet [Levaquin tablet] 500 mg PO DAILY #3 tablet Transmission Status: Pending to [facility] Primary Care Physician: Miriam Eden MD [Primary Care Provider] - Please follow up with your Primary Care Physician in: in 2 weeks Test Results: Test results from this visit will be discussed in further detail at your follow-up appointment, if applicable. Please Follow Up With: Gordo Barnett DO When: in 2 weeks with Jackie Sagastume NP Please Follow Up With: Chinedu Belcher MD When: for KARUNA ckd
--- NOTE | 2020-11-15 09:44 | DS.PCM_ITS ---
Discharge Date and Diagnosis - Problem List Patient Problems: Active and Suspected Problems (Last Reviewed 07/21/20 @ 16:[address] Edinson White MD) CAP (community acquired pneumonia) (Acute) Severe sepsis (Acute) Hypoxia (Acute) Elevated lactic acid level (Acute) Date of Admission: 11/12/20 Date of Discharge: 11/15/20 - Primary Discharge Diagnosis Acute Problems: Active Problems (Last Reviewed 07/21/20 @ 16:[address] Edinson White MD) CAP (community acquired pneumonia) (Acute) Severe sepsis (Acute) Hypoxia (Acute) Elevated lactic acid level (Acute) - Secondary Discharge Diagnosis Chronic Problems: Chronic Problems (Last Reviewed 07/21/20 @ 16:[address] Edinson White MD) Dvrgr-he-hrvsapi kidney injury (Chronic) Presence of permanent cardiac pacemaker (Chronic 07/21/18) 01/11/2011, generator change 07/21/18 Sick sinus syndrome (Chronic) NSVT (nonsustained ventricular tachycardia) (Chronic) Secondary pulmonary arterial hypertension (Chronic) Essential (primary) hypertension (Chronic) HLD (hyperlipidemia) (Chronic) Hospital Course and Treatment Summary of Care Provided: The patient is a 85 year old M with past medical history of hypertension, CAD status post CABG, status post pacemaker who comes in with complaints of fever, cough, generalized weakness ongoing for about 6 days. 1. Severe sepsis secondary to community-acquired pneumonia; CXR showed right sided pneumonia with worsening infiltrate in repeat chest x-ray. Admitting lactic acid was 2.3, improved to 1.0. Blood cultures x2 are negative for more than 48 hours. Urine culture no growth. Urinary antigens, respiratory panel and SARS-CoV-2 rapid antigen were negative. Repeat x-ray showed worsening pneumonia but patient clinically improved. Pulse ox 94% on ambient air and on ambulation 90% on ambient air. Patient was seen by feather boner initially treated with IV antibiotics ceftriaxone and azithromycin. Patient discharged on Levaquin to complete a total of 7 days. 2. Acute hypoxic failure secondary to community-acquired pneumonia: Resolved. As mentioned above Continue to encourage use of incentive spirometer 3. Hypokalemia/hypomagnesemia, replaced: Repeat labs shows normal sodium, potassium and magnesium. 4. KARUNA on CKD stage 3b, secondary to severe sepsis improved. Patient chronic kidney disease may be due to uncontrolled hypertension, cardiorenal disease. Discussed with the [facility] detox[facility] specialist Dr. Belcher and he will follow-up as an outpatient. Cr improved 2.47 to 1.85 Baseline Creatinine between 1.2-1.4; Off Losartan/hydrochlorothiazide; BUN/creatinine showing improving trend. Patient advised to hold losartan and dose of amlodipine increased to compensate for it. 5. Hypertension, BP was uncontrolled, currently normal range. 6. CAD status post stent, status post CABG/status post pacemaker Continue on aspirin, isosorbide, metoprolol, pravastatin, amiodarone 7. DVT prophylaxis with heparin subcu 8. GI Prophylaxis with famotidine p.o. patient quitting smoking about 30 years ago. Had about 45 pack years of smoking. Discharge medication reconciliation done. Discharge follow-up instructions completed. Discharge process discussed with the patient and all questions were answered to patient's satisfaction. Follow-up in pulmonary clinic in 2 weeks. Total time spent, exact 35 minutes on discharge meds reconciliation, examination, coordination of care with nurses and ancillary staff, review of imaging and blood test and discussion with the patient on follow-up instructions Patient Problems: Active and Suspected Problems (Last Reviewed 07/21/20 @ 16:[address] Edinson White MD) CAP (community acquired pneumonia) (Acute) Severe sepsis (Acute) Hypoxia (Acute) Elevated lactic acid level (Acute) Objective: Seen and examined. No fever or chills. T-max 99.2. No hypoxia or tachypnea. Patient denies shortness of breath or wheezing. Physical exam General: Alert, Oriented x3, Cooperative HEENT: Atraumatic, PERRLA, EOMI, Normocephalic Oral: No Gingival or Mucosal Lesions/ Ulcerations Neck: Supple, No JVD, Negative Carotid Bruits Lungs: Air entry diminished in bilateral lung bases. No crepitation/rhonchi/hypoxia Cardiovascular: Regular rate, Regular Rhythm, Normal S1, Normal S2, ejection systolic murmur over right second ICS Abdomen: Bowel Sounds Present, Soft, Non Tender, Non-Distended : No renal angle tenderness. No suprapubic tenderness. Extremities: No edema, Capillary Refill Less than 3 Seconds Skin: No rashes, No breakdown Musculoskeletal: No Tenderness to Palpation of Joints or Extremities Neurological: Cranial nerves II-XII grossly intact, Deep Tendon Reflexes 2+/4 and Symmetrical, Neuro grossly intact Psych/Mental Status: Normal Affect, Appropriate. - Physical Exam Vitals/I&O's: Vital Signs Temp Pulse Resp BP Pulse Ox 98.1 F 70 16 153/63 H 92 11/15/20 08:13 11/15/20 08:26 11/15/20 08:13 11/15/20 08:13 11/15/20 08:18 Oxygen Flow Rate (L/min) 1 Oxygen Delivery Method Room Air Weight: 177 lb Body Mass Index (BMI) 26.4 Intake and Output for Last 24 Hours 11/13/20 11/14/20 11/15/20 23:59 23:59 23:59 Intake Total 2140.0 / 2140.0 1035 / 1035 750 / 750 Output Total 1525 / 1825 475 / 475 Balance 615.0 / 315.0 560 / 560 750 / 750 Microbiology Past 72 Hours 11/12/20 19:40 Urine, Clean Catch Urine Culture - Final Culture exhibits no growth. 11/12/20 11:45 Blood Culture (Wb) - Anticubital Left Blood Culture - Preliminary No growth in 48 hours. 11/12/20 12:16 Blood Culture (Wb) - Anticubital Right Blood Culture - Preliminary No growth in 48 hours. 11/12/20 19:40 Urine, Random Legionella Antigen - Final 11/12/20 19:40 Urine, Random Streptococcus pneumoniae Antigen (M - Final 11/12/20 14:50 Mucosa - Nasopharyngeal Respiratory Panel (PCR) - Final 11/12/20 11:50 Mucosa - Nose SARS-CoV-2 Antigen (Rapid) - Final Current Medications Acetaminophen (Acetaminophen 325 Mg Tablet) 650 mg PO Q6H PRN PRN PRN Reason: Pain Score 1-10/Temp > 100.7 F Albuterol/Ipratropium (Ipratropium/Albuterol Sulfate 3 Ml Ampul.Neb) 3 ml INHALATION Q4HWA.RT LEOBARDO Last Admin: 11/14/20 18:53 Dose: 3 ml Documented by: Amiodarone HCl (Amiodarone 200 Mg Tablet) 200 mg PO QHS LEOBARDO Last Admin: 11/14/20 22:21 Dose: 200 mg Documented by: Amlodipine Besylate (Amlodipine 5 Mg Tablet) 5 mg PO DAILY [facility] Last Admin: 11/15/20 08:25 Dose: 5 mg Documented by: Aspirin (Aspirin E.C. 81 Mg Tablet) 81 mg PO DAILY@0800 [facility] Last Admin: 11/15/20 08:26 Dose: 81 mg Documented by: Famotidine (Famotidine 20 Mg Tablet) 20 mg PO DAILY [facility] Last Admin: 11/15/20 08:25 Dose: 20 mg Documented by: Heparin Sodium (Porcine) (Heparin Injection (Vial) 5,000 Unit/Ml Vial) 5,000 unit SC Q12 [facility] Last Admin: 11/15/20 08:26 Dose: 5,000 unit Documented by: Ceftriaxone Sodium (Rocephin) 1 gm in 50 mls @ 100 mls/hr IV Q24 [facility] Last Infusion: 11/14/20 14:56 Dose: Infused Documented by: Azithromycin 500 mg/ Dextrose 255 mls @ 250 mls/hr IV Q24 [facility] Last Infusion: 11/14/20 14:56 Dose: Infused Documented by: Sodium Chloride () 250 mls @ 15 mls/hr IV .[id number] PRN PRN Reason: Saline Flush Sodium Chloride () 250 mls @ 15 mls/hr IV .[id number] PRN PRN Reason: Additional IVPB Infusion Isosorbide Mononitrate (Isosorbide Mononitrate 20 Mg Tablet) 20 mg PO BID [facility] Last Admin: 11/15/20 08:25 Dose: 20 mg Documented by: Metoprolol Tartrate (Metoprolol Tartrate 50 Mg Tablet) 50 mg PO BID [facility] Last Admin: 11/15/20 08:26 Dose: 50 mg Documented by: Ondansetron HCl (Ondansetron 4 Mg/2 Ml Vial) 4 mg IV Q8H PRN PRN PRN Reason: NAUSEA/VOMITING Pravastatin Sodium (Pravastatin 20 Mg Tablet) 20 mg PO QHS [facility] Last Admin: 11/14/20 22:22 Dose: 20 mg Documented by: Sodium Chloride (0.9% Saline Lock 10 Ml Syringe) 10 - 40 ml IV UD PRN PRN Reason: SALINE FLUSH Last Admin: 11/14/20 10:59 Dose: 10 ml Documented by: Discharge Activity: May Not Drive Call your doctor if you observe: Fever of 101 or Higher, Coldness, Increased Pain, Numbness or Tingling, Change in Color, Inability to urinate, Inability to have a bowel movement, Shortness of breath, Dizziness, Fainting spells, Swelling in the ankles, Chest pain, Prolonged hiccoughing, Increased palpitations (irregular heartbeat), Calf discomfort, Uncontrolled pain Home Medications: Medications to take at Discharge Amiodarone HCl 200 mg PO QHS 11/12/20 Aspirin E.C. [Ecotrin] 81 mg PO DAILY@0800 11/12/20 Isosorbide Mononitrate [Monoket] 20 mg PO BID 11/12/20 Metoprolol Tartrate [Lopressor (beta juan josé)] 50 mg PO BID 11/12/20 Pravastatin Sodium 20 mg PO QHS 11/12/20 Amlodipine Besylate [Norvasc] 10 mg PO QDAY #0 11/15/20 Losartan Potassium 100 mg PO DAILY #0 11/15/20 levoFLOXacin tablet [Levaquin tablet] 500 mg PO DAILY #3 tablet 11/15/20 Following Prescriptions Were Given to Patient: levoFLOXacin tablet [Levaquin tablet] 500 mg PO DAILY #3 tablet Transmission Status: Received by [facility] Primary Care Physician: Miriam Eden MD [Primary Care Provider] - Please follow up with your Primary Care Physician in: in 2 weeks Please Follow Up With: Gordo Barnett DO When: in 2 weeks with Jackie Sagastume NP Please Follow Up With: Chinedu Belcher MD When: for KARUNA ckd Medical Necessity - Tobacco Use Smoking Status: Former smoker Tobacco Use: Non-smoker Meaningful Use Info Meaningful Use Diagnoses (Choose all that apply): None applicable Inpatient E&M: 72557 Init Hosp L3
--- NOTE | 2020-11-15 11:43 | CASEMGMT ---
Addendum entered by Mallory Babcock 11/15/20 12:15: Received tc back from Luisa at [facility] and they are able to accept pt. Original Note: RN CM in to pt room to discuss dc planning. Further therapy recommended. Pt is agreeable to PT only. at bedside and feels HH would benefit pt greatly. Patient was provided a list of [facility] providers including quality and resource use data and consistent with the patient?s preferred geographic region, medical needs, and insurance network. The patient?s preferred provider [facility]. [facility]. Left message on vm.
--- NOTE | 2020-11-16 12:51 | CASEMGMT ---
RN PADMINI Discharge Follow Up Phone Call: CYRUSE: 11 Strata: 3 Call Date: 11.16.20 Discharge Date: 11.15.20 Time of Call: 1248 Duration: <1 min Admitting Dx: severe sepsis JURGEN [place] attempted to complete follow up phone call after recent hospitalization. No answer on phone and no identifying vm.
== END 2020-11-15 13:36 | disposition home health service (06) | DRG 871 ==
LOC: ED 12:15 → ICU 13:54 → MS3 11-15 09:26
PROVIDERS: Admitting Provider Internal Medicine; Emergency Provider Emergency Medicine; PCP Internal Medicine; Visit Provider Internal Medicine
DX: A41.9 Sepsis, unspecified organism (principal); J18.9 Pneumonia, unspecified organism; J96.01 Acute respiratory failure with hypoxia; N17.9 Acute kidney failure, unspecified; J44.1 Chronic obstructive pulmonary disease with (acute) exacerbation; J44.0 Chronic obstructive pulmonary disease with (acute) lower respiratory infection; R65.20 Severe sepsis without septic shock; I12.9 Hypertensive chronic kidney disease with stage 1 through stage 4 chronic kidney disease, or unspecified chronic kidney disease; N18.32 Chronic kidney disease, stage 3b; E87.6 Hypokalemia; E83.42 Hypomagnesemia; E86.9 Volume depletion, unspecified; I49.5 Sick sinus syndrome; I27.21 Secondary pulmonary arterial hypertension; I25.10 Atherosclerotic heart disease of native coronary artery without angina pectoris; E78.5 Hyperlipidemia, unspecified; Z20.822 Contact with and (suspected) exposure to COVID-19; I25.2 Old myocardial infarction; Z79.82 Long term (current) use of aspirin; Z79.899 Other long term (current) drug therapy; Z95.0 Presence of cardiac pacemaker; Z95.5 Presence of coronary angioplasty implant and graft; Z95.1 Presence of aortocoronary bypass graft; Z87.891 Personal history of nicotine dependence; Z96.643 Presence of artificial hip joint, bilateral
CPT/HCPCS: 36415; 71045; 80053; 81001; 83605; 83735; 84484; 85025; 87040; 87086; 87426; 87449; 87633; 87635; 93005; 94640; 94660; 97110; 97116; 97161; 97165; 97530; 97535; 97802; 99285; J7030; A4216; J0696; J1940; U0002